=== PATIENT | male | born 1955 | race Caucasian/White ===

== ENCOUNTER 2024-09-16 23:11 | Inpatient (IN) | payer MEDICARE ==
[~2024-09-16] VITALS: Ht 182.9 cm; Wt 49.0 kg
--- NOTE | 2024-09-16 23:34 | NUR ---
PT WAS PLACED ON O2 VIA N/C AT 2 LPM
[2024-09-16 23:40] LABS: BASOPHILS # (AUTO) 0.05 K/uL (0.00-0.20); BASOPHILS % (AUTO) 0.4 % (0.0-5.0); EOSINOPHILS # (AUTO) 0.32 K/uL (0.00-0.70); EOSINOPHILS % (AUTO) 2.6 % (0.0-8.0); HEMATOCRIT 46.5 % (42-54); IMMATURE GRANULOCYTE ABSOLUTE 0.06 K/uL (0-1); LYMPHOCYTES # (AUTO) 0.7 K/uL (1.0-4.8); MEAN CORPUSCULAR HEMOGLOBIN 30.6 pg (27.0-33.0); MEAN CORPUSCULAR HGB CONC 33.3 g/dL (32.0-36.0); MEAN CORPUSCULAR VOLUME 91.9 fL (79-99); MONOCYTES # (AUTO) 0.9 K/uL (0.1-1.0); MONOCYTES % (AUTO) 7.1 % (3.0-13.0); NEUTROPHILS # (AUTO) 10.3 K/uL (1.8-7.7); NEUTROPHILS % (AUTO) 83.4 % (40.0-77.0); PLATELET COUNT (AUTO) 201 K/uL (130-400); RED BLOOD CELL COUNT(AUTO) 5.06 MIL/uL (4.50-6.20); RED CELL DISTRIBUTION WIDTH 14.1 % (11.0-15.5); WHITE BLOOD COUNT (AUTO) 12.3 K/uL (4.8-10.8)
--- NOTE | 2024-09-16 23:49 | ERN ---
ED Note History of Present Illness Stated Complaint: SOB X 2 DAYS Chief Complaint: Adult-Asthma Time Seen by MD: 23:15 Dictation: This is a 69-year-old very pleasant male who came into the emergency room with complaints of increasing shortness of breath progressively but got worse over 2 days. He usually takes breathing treatments with some relief however this particular time it did not help him 2-1/2 years ago he was admitted to the hospital but denied any intubation. At that time he was started on breathing treatments. He reports cough associated with the shortness of breath and scant amounts of sputum. He denied any hemoptysis denied fevers chills or hemoptysis. No recent travel or new pets at home Temperature 97.1 pulse 100 respirations 26 blood pressure 138/54. Pulse oximetry 99% on room air He has never been formally diagnosed with COPD but was told he had asthma. He continues to smoke 2 packs of cigarettes per day and also smokes marijuana daily Allergies: Coded Allergies: No Known Drug Allergies (Unverified Allergy, Unknown, 09/16/24) Past Medical History Past Medical History: Asthma, COPD, Hypertension Surgical History: Unknown Family History: Negative Social History: Smokers (Smokes 2 packs per day), Drugs (Marijuana use), ETOH RN Note Reviewed/Agreed w/PFSH: Yes Review of System Dictation Constitutional: Negative for fever,chills, and weight loss Eyes: Negative for injury, pain,redness, and discharge ENT: Negative for injury,pain or swelling Cardiovascular: Negative for chest pain, palpitations, and edema Respiratory: Positive for shortness of breath, cough, and wheezing, Abdomen/GI: Negative for abdominal pain, nausea, vomiting, diarrhea, and constipation Back: Negative for injury and pain : Negative for injury, bleeding and discharge MS/Extremity: Negative for injury and deformity Skin: Negative for rash, and discoloration Neuro: Negative for headache, weakness, numbness, tingling, and seizure Psych: Negative for suicide ideation, homicidal ideation, and hallucinations Initial Vital Sign VS Vital Signs Date Time Temp Pulse Resp B/P (MAP) Pulse Ox O2 Delivery O2 Flow Rate FiO2 09/16/24 23:12 97.2 100 26 138/84 99 Room Air 0 09/16/24 23:12 100 Physical Exam Dictation General: awake, alert, very emaciated, cachectic, chronically ill-appearing with a temporal wasting, moderately tachypneic Head/Face: Normocephalic, atraumatic Eyes: PERRL, EOMI, vision at baseline ENT: oral cavity clear, TMs clear, no signs of infection Neck: Trachea midline, supple, no nuchal rigidity Cardiovascular: RRR, normal S1/S2, No MRGs, no JVD Respiratory: Poor air entry with prolonged expiratory phase and end expiratory wheezes more pronounced posteriorly Abdomen: Soft, non-tender, non-distended, normal bowel sounds, no guarding or rebound. Skin: Warm, dry, normal turgor, no rash MS/Extremity: Pulses equal, no cyanosis, neurovascular intact, FROM Neuro: COAx4, GCS 15, strength 5/5, CN 2-12 intact, normal cerebellar exam, normal gait, Psych: Normal behavior, mood, and affect normal Extremities-no edema without any palpable cords, Homans sign is negative Results (Laboratory/Radiology) Laboratory/Radiology Laboratory Tests Test 09/16/24 23:23 09/16/24 23:32 White Blood Count 12.3 K/uL (4.8-10.8) H Red Blood Count 5.06 MIL/uL (4.50-6.20) Hemoglobin 15.5 g/dL (14.0-18.0) Hematocrit 46.5 % (42-54) Mean Corpuscular Volume 91.9 fL (79-99) Mean Corpuscular Hemoglobin 30.6 pg (27.0-33.0) Mean Corpuscular Hemoglobin Concent 33.3 g/dL (32.0-36.0) Red Cell Distribution Width 14.1 % (11.0-15.5) Platelet Count 201 K/uL (130-400) Mean Platelet Volume 10.9 fL (7.5-10.5) H Immature Granulocyte % (Auto) 0.5 % (0-1) Neutrophils (%) (Auto) 83.4 % (40.0-77.0) H Lymphocytes (%) (Auto) 6.0 % (21.0-51.0) L Monocytes (%) (Auto) 7.1 % (3.0-13.0) Eosinophils (%) (Auto) 2.6 % (0.0-8.0) Basophils (%) (Auto) 0.4 % (0.0-5.0) Neutrophils # (Auto) 10.3 K/uL (1.8-7.7) H Lymphocytes # (Auto) 0.7 K/uL (1.0-4.8) L Monocytes # (Auto) 0.9 K/uL (0.1-1.0) Eosinophils # (Auto) 0.32 K/uL (0.00-0.70) Basophils # (Auto) 0.05 K/uL (0.00-0.20) Absolute Immature Granulocyte (auto 0.06 K/uL (0-1) Nucleated Red Blood Cells 0.0 % (0.0-0.19) Sodium Level 133 mmol/L (136-145) L Potassium Level 4.5 mmol/L (3.5-5.1) Chloride Level 96 mmol/L (101-111) L Carbon Dioxide Level 30 mmol/L (21-32) Blood Urea Nitrogen 19 mg/dL (7-18) H Creatinine 0.4 mg/dL (0.5-1.3) L Glomerular Filtration Rate Calc 118 mL/min (>90) Random Glucose 131 mg/dL (70-105) H Total Calcium 8.7 mg/dL (8.5-10.1) Influenza Type A Antigen Negative For Type A Influenza Type B Antigen Negative For Type B SARS-CoV-2, RNA, NAAT NEGATIVE SARS CoV-2 Group A Streptococcus Rapid negative (NEGATIVE) Labs Reviewed?: Yes EKG Comment: 12 lead EKG done on 09/16/2024 at 11:22 p.m. showed a normal sinus rhythm with a heart rate of 93, MS 149, QRS duration 72, QT/QTC 344/427 Impression sinus tachycardia with evidence of possible right atrial enlargement nonspecific ST-T changes but no evidence of any acute ST elevations or deep ST depressions. Interpreted by Dr. Hagan X-RAY Comment: It at by Dr. Hagan Chest x-ray showed severe hyperinflation, emphysematous changes with chronic scarring but did not appreciate any focal infiltrate. Radiology report is pending at this time ED Course ED Course Orders Procedure Category Date Status Time Cbc With Differential LAB 09/16/24 In Process 23:20 Basic Metabolic Panel LAB 09/16/24 Complete 23:20 Chest 1vw RAD 09/16/24 Resulted 23:20 12 Lead Ekg Tracing- EKG 09/16/24 Logged Technical 23:20 Covid Rna Naat LAB 09/16/24 Complete 23:28 Influenza Type A & B, LAB 09/16/24 Complete Rapid 23:28 Rapid (Group A Strep) LAB 09/16/24 Complete 23:28 Arterial Blood Gas RT 09/16/24 Transmitted 23:39 O2 Nc Keep Sats CPOE 09/16/24 Transmitted Greater 92% 23:39 Notify Md: Spo2 < 88% CPOE 09/16/24 Transmitted 23:39 0.9%Nacl 1000ml (Ns PHA 09/17/24 In Process 1000ml) 00:00 Ipratropium/Albuterol PHA 09/17/24 Complete Neb (Duoneb) 00:00 Alprazolam 0.25mg PHA 09/17/24 Complete (Xanax 0.25mg) 00:00 Methylprednisolone PHA 09/17/24 Complete Succ 125mg (Solu-Medr 00:00 Guaifenesin 600 Mg PHA 09/17/24 In Process Tablet.Er (Mucinex 60 00:30 Levofloxacin 750 PHA 09/17/24 In Process Mg/D5w 150 Ml 00:30 Current Medications Medications (Trade) Dose Ordered Sig/Btehany Route PRN Reason Start Time Stop Time Status Last Admin Dose Admin Albuterol (DUOneb) 1 udvial ONCE ONCE IH 09/17/24 00:00 09/17/24 00:01 DC Alprazolam (XANax 0.25MG) 0.25 mg ONCE ONCE PO 09/17/24 00:00 09/17/24 00:01 DC 09/17/24 00:00 Guaifenesin (MUCinex 600 MG TABLET.ER) 600 mg ONCE ONCE PO 09/17/24 00:30 09/17/24 00:31 Levofloxacin/ Dextrose (LEvaquIN 750 MG/ D5W 150 ML) 750 mg ONCE ONCE IV 09/17/24 00:30 09/17/24 00:31 Methylprednisolone Sodium Succinate (Solu-medROL 125MG) 125 mg ONCE ONCE IVP 09/17/24 00:00 09/17/24 00:01 DC 09/17/24 00:00 Sodium Chloride 1,000 ml @ 125 mls/hr ONCE ONCE IV 09/17/24 00:00 09/17/24 07:59 09/17/24 00:00 Vital Signs Date Time Temp Pulse Resp B/P (MAP) Pulse Ox O2 Delivery O2 Flow Rate FiO2 09/17/24 00:00 93 24 124/62 93 Nasal Cannula* 2 28 09/16/24 23:12 97.2 100 26 138/84 99 Aerosol Mask+ 10 100 09/16/24 23:12 97.2 100 26 138/84 99 Room Air 0 We will perform diagnostic labs, advanced imaging and administer medications according to the patient's complaint. Once the results are available, will review and personally interpreted the labs to rule out any acute life- threatening emergency the trach require immediate intervention and treatment. I will then re-evaluate the patient after treatment and diagnostic exams have return to determine whether the patient requires any further testing, can safely be discharged home or need further admission to hospital for additional treatment and evaluation. COPD pathway was initiated. Gentle hydration, IV steroids and bronchodilators were started. 12:15 a.m. Labs reviewed WBC 12.3 BNP 7 showed a bicarb of 30 ABG is pending. Chest x-ray showed severe hyperinflation and emphysematous changes Recommended admission to the hospital for acute on chronic hypoxemic respiratory failure with COPD exacerbation. And was very labored when he came in but has settle down somewhat since then Patient [facility] and further management-placed orders for step-down unit Medical Decision Making MDM MDM: Differential diagnosis: COPD with acute exacerbation, congestive heart failure, pneumonia Rationale: Tests considered and ordered secondary to shared decision making include: labs, ECG and radiology Previous outside records reviewed: Old ER visits. Risk of complication and/or morbidity or mortality of patient management: None Medications-Per medication reconciliation Need for hospitalization: Patient does meet criteria for hospitalization. Need for emergency major/minor surgery: No There are no social concerns with this patient. Prescription drug management Prescriptions will include symptomatic care Patient's prior external medical records from other ER visits were reviewed by me as indicated. Prior testing and results from previous visits were reviewed. Prior tests were taken into account with medical decision making and resource utilization, independent historian/historians were used to obtain complete medical history. I independently interpreted the test that were performed, results were reviewed by me and considered findings on radiology if ordered. Medical management and examination interpretation discussions were had by me with other qualified healthcare professionals as indicated for the patient's care. Problem List Problem List: (1) Acute hypoxemic respiratory failure (2) Acute exacerbation of COPD with asthma (3) Nicotine dependence (4) Cannabis use disorder (5) Pulmonary cachexia due to COPD DX & DISP Disposition: Inpatient Decision to Admit Time: 23:47 Departure Impression: Primary Impression: Acute hypoxemic respiratory failure Additional Impressions: Acute exacerbation of COPD with asthma, Nicotine dependence, Cannabis use disorder, Pulmonary cachexia due to COPD Condition: Stable Additional Instructions: Patient was informed of all the diagnostic labs and procedures conducted in the emergency room today and demonstrated understanding of the results. I personally reviewed and interpreted all the diagnostic exams performed in the ER today. The patient will be admitted to the hospital for further treatment and evaluation. Disposition-admit to facility Condition-stable/guarded Course-uncertain at this time Pain status-decreased Assessment-exam unchanged Admission Certification- I certify that the patients status is appropriate and is based on my best clinical judgment and the patient's condition as documented in the medical records Referrals: SO HUNT MD (PCP) STU HAGAN MD Sep 16, 2024 23:49
[2024-09-16 23:53] LABS: CREATININE 0.4 mg/dL (0.5-1.3); POTASSIUM 4.5 mmol/L (3.5-5.1)
[2024-09-16 23:57] LABS: RAPID GROUP A STREP negative (NEGATIVE)
[2024-09-17] VITALS (17 sets, daily range): BP systolic 117–136; BP diastolic 71–80; PULSE 76–99; RESP 18–22; TEMP 98–98.8; O2SAT 93–98
[2024-09-17] MEDS: ALPRAZolam 0.25 MG TABLET PO ONE
[2024-09-17] MEDS: Solu-medROL 125MG VIAL IVP ONE
[2024-09-17] MEDS: 0.9%NACL 1000ML 1,000 ML IV ONE
[2024-09-17 00:01] LABS: SARS-CoV-2, RNA, NAAT NEGATIVE SARS CoV-2 (NEGATIVE)
[2024-09-17 00:07] LABS: INFLUENZA TYPE A Negative For Type A (NEGATIVE); INFLUENZA TYPE B Negative For Type B (NEGATIVE)
--- NOTE | 2024-09-17 00:26 | HMCIMG ---
CHEST 1VW HISTORY: Shortness of breath COMPARISON: None FINDINGS: A frontal projection of the chest was obtained. Mild bilateral pulmonary infiltrates are seen may be related to mild pulmonary vascular congestion with possible superimposed pneumonitis. COPD changes are seen. The heart is borderline enlarged. Degenerative changes are seen. No evidence of aortic calcification is seen. IMPRESSION: 1. Mild bilateral pulmonary infiltrates are seen may be related to mild pulmonary vascular congestion with possible superimposed pneumonitis.
[2024-09-17] MEDS: levoFLOXacin 750 MG/D5W 150ML BAG IV ONE (00:27)
[2024-09-17] MEDS: guaiFENesin 600 MG TABLET.ER PO ONE (00:27)
[2024-09-17] MEDS: IpraTROPium/alBUTERol SULFATE 3 ML SOLUTION IH ONE (00:50)
[2024-09-17 00:59] LABS: ABG BASE EXCESS -2.2 mmol/L (-2.0-3.0); ABG OXYGEN SATURATION 87.8 % (94.0-98.0); ABG PCO2 41 mmHg (35-48); ABG PH 7.366 (7.350-7.450); PO2, ARTERIAL BG 55.2 mmHg (83.0-108.0); VENT MODE, BG ROOMAIR (ROOM AIR)
[2024-09-17] MEDS ORDERED: TEMAZepam 15 MG CAPSULE PO PRN (01:00)
[2024-09-17] MEDS ORDERED: acetaMINOPHEN 650 MG SUPPOSITORY RC PRN (01:00)
[2024-09-17] MEDS ORDERED: doCUSate SODIUM 100 MG CAP PO PRN (01:00)
[2024-09-17] MEDS ORDERED: hydrALAZine 20MG/ML VIAL IV PRN (01:00)
[2024-09-17] MEDS ORDERED: LACTULOSE 20 GM/30 ML UDCUP PO PRN (01:00)
[2024-09-17] MEDS ORDERED: guaiFENesin SUGAR-FREE 100 MG/5 ML UDCUP PO PRN (01:00)
--- NOTE | 2024-09-17 01:01 | HP ---
[facility] HISTORY AND PHYSICAL Date of Service: Sep 17, 2024 Time of Service: 01:01 PCP: Dr. Markus Cartagena Supervising physician/attending: Dr. Pfeiffer and Dr. Castillo HISTORY OF PRESENT ILLNESS: Mr. Rosario is a 69-year-old male who presented to with a history of a asthma, tobacco dependence, cannabis abuse, hypertension, and anxiety [facility] ED for evaluation of progressive worsening shortness of breath over 2 days. The patient was prescribed albuterol and fluticasone-Solmeterol by Dr. Sienna Lee. The patient reports usually takes albuterol treatments with some relief, however this time albuterol did not help him. 2-1/2 years ago he was admitted to the hospital but denied any intubation. At that time he was started on breathing treatments. He reports cough associated with the shortness of breath and scant amounts of foamy sputum (reports the phlegm is not green or yellow). He denied any hemoptysis, chills, fevers, or hemoptysis. The patient also denied any recent travel or new pets at home. On arrival to ED patient's vital signs: Temperature 97.1 pulse 100 respirations 26 blood pressure 138/54. Pulse oximetry 93- 99% on room air. The patient reported that he has never been formally diagnosed with COPD but was told he had asthma. 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 He continues to smoke 2 packs of cigarettes per day and also smokes marijuana daily. EKG: Sinus rhythm, heart rate 93. Chest x-ray: Mild bilateral pulmonary infiltrates are seen maybe related to mild pulmonary vascular congestion with possible superimposed pneumonitis. D-dimer WNL 464, BNP 60, troponin 13. I nfluenza, COVID, and rapid strep are negative. GFR 118. Remarkable lab results: WBCs 12.3, sodium 133, chloride 96, BUN 19, creatinine 0.4, glucose 131, UA is positive for ketones, occult blood, and protein. ED physician reports that patient arrived to the ED very unlabored. In ED patient was administered DuoNeb, Xanax, [id number] mg, Mucinex, and L evaquin. ED physician request patient be admitted for acute on chronic hypoxemic respiratory failure with COPD exacerbation. I went to evaluate patient at bedside in ED five. Patient was tachypneic, had retractions, and was wheezing. I informed patient of labs, diagnostics, and plan of care. Education done on smoking cessation. Multiple questions were answered. Patient verbalizes understanding and is in agreement with the plan. Plan and assessment are listed below. REVIEW OF SYSTEMS 12-point ROS reviewed with patient. All pertinent positives mentioned above. Otherwise negative, nonpertinent, and noncontributory. Past Medical History: Asthma, Hypertension, undiagnosed COPD Surgical History: Appendectomy, oral surgery with implants Family History: Negative Social History: Smokers (Smokes 2 packs per day), Drugs (Marijuana use), ETOH Coded Allergies: No Known Drug Allergies (Unverified Allergy, Unknown, 09/16/24) PHYSICAL EXAM GENERAL APPEARANCE: The patient is awake, alert, and oriented x4. Cachectic. NEUROLOGICAL: Cranial nerves II-XII grossly intact. Motor is 5/5 in bilateral upper and lower extremities proximal to distal. No sensory deficits. HEENT: Face is symmetric. Pupils are equal and reactive. Extraocular movements are intact. NECK: Supple. No JVD. No thyromegaly. No submental, submandibular, pre- /postauricular, occipital or supraclavicular lymphadenopathy. CHEST: Normal chest expansion. No Telemetry. LUNGS: + wheezing. Tachypneic, retractions, abdominal breathing. CARDIOVASCULAR: Regular. S1 and S2 normal. No appreciable rubs, murmurs or gallops. ABDOMEN: Soft, nontender, and nondistended. There is no rebound, voluntary guarding, or rigidity. : Deferred. No Jasmine. EXTREMITIES: Non-edematous and not cyanotic. No clubbing. Good capillary refill. SKIN: No skin breakdown. Vital Sign (Last 24 Hours) 09/16/24 09/17/24 23:12 00:00 Temp 97.2 Pulse 93 Resp 24 B/P (MAP) 124/62 Pulse Ox 93 O2 Delivery Nasal Cannula* O2 Flow Rate 2 FiO2 28 LABS: Laboratory: Test 09/17/24 00:57 09/16/24 23:32 09/16/24 23:23 Range/Units Blood Gas Specimen Type Arterial Arterial Blood pH 7.366 7.350-7.450 Arterial Blood Partial Pressure CO2 41 35-48 mmHg Arterial Blood Partial Pressure O2 55.2 L 83.0-108.0 mmHg Arterial Blood HCO3 23.0 21.0-28.0 mmol/L Arterial Blood Oxygen Saturation 87.8 L 94.0-98.0 % Arterial Blood Base Excess -2.2 L -2.0-3.0 mmol/L Blood Gas Temperature 37.0 35.5-37.0 CELSIUS Blood Gas Vent Mode ROOMAIR ROOM AIR FiO2 21.0 % Blood Gas Specimen Comment RB Influenza Type A Antigen Negative For Type A NEGATIVE Influenza Type B Antigen Negative For Type B NEGATIVE SARS-CoV-2, RNA, NAAT NEGATIVE SARS CoV-2 NEGATIVE Group A Streptococcus Rapid negative NEGATIVE White Blood Count 12.3 H 4.8-10.8 K/uL Red Blood Count 5.06 4.50-6.20 MIL/uL Hemoglobin 15.5 14.0-18.0 g/dL Hematocrit 46.5 42-54 % Mean Corpuscular Volume 91.9 79-99 fL Mean Corpuscular Hemoglobin 30.6 27.0-33.0 pg Mean Corpuscular Hemoglobin Concent 33.3 32.0-36.0 g/dL Red Cell Distribution Width 14.1 11.0-15.5 % Platelet Count 201 130-400 K/uL Mean Platelet Volume 10.9 H 7.5-10.5 fL Immature Granulocyte % (Auto) 0.5 0-1 % Neutrophils (%) (Auto) 83.4 H 40.0-77.0 % Lymphocytes (%) (Auto) 6.0 L 21.0-51.0 % Monocytes (%) (Auto) 7.1 3.0-13.0 % Eosinophils (%) (Auto) 2.6 0.0-8.0 % Basophils (%) (Auto) 0.4 0.0-5.0 % Neutrophils # (Auto) 10.3 H 1.8-7.7 K/uL Lymphocytes # (Auto) 0.7 L 1.0-4.8 K/uL Monocytes # (Auto) 0.9 0.1-1.0 K/uL Eosinophils # (Auto) 0.32 0.00-0.70 K/uL Basophils # (Auto) 0.05 0.00-0.20 K/uL Absolute Immature Granulocyte (auto 0.06 0-1 K/uL Nucleated Red Blood Cells 0.0 0.0-0.19 % Sodium Level 133 L 136-145 mmol/L Potassium Level 4.5 3.5-5.1 mmol/L Chloride Level 96 L 101-111 mmol/L Carbon Dioxide Level 30 21-32 mmol/L Blood Urea Nitrogen 19 H 7-18 mg/dL Creatinine 0.4 L 0.5-1.3 mg/dL Glomerular Filtration Rate Calc 118 >90 mL/min Random Glucose 131 H 70-105 mg/dL Total Calcium 8.7 8.5-10.1 mg/dL Current Medications Medications (Trade) Dose Ordered Sig/Bethany Route PRN Reason Start Time Stop Time Status Last Admin Dose Admin Acetaminophen (TYLenol 325MG TAB) 650 mg Q6H PRN PO FEVER/MILD PAIN LEVEL 1-3 09/17/24 01:00 10/17/24 00:59 UNV Acetaminophen (TYLenol 650MG SUPPOSITORY) 650 mg Q6H PRN RC FEVER / MILD PAIN 1-3 IF NPO 09/17/24 01:00 10/17/24 00:59 UNV Albuterol Sulfate (Proventil 0.083% 2.5mg/3ml) 2.5 mg [id number] IH 09/17/24 06:00 10/17/24 05:59 UNV Docusate Sodium (COLace 100MG CAP) 100 mg BID PRN PO CONSTIPATION 09/17/24 01:00 10/17/24 00:59 UNV Doxycycline Hyclate (Doxycycline 100mg+NS 250ml) 100 mg BID IV 09/17/24 09:00 09/27/24 08:59 UNV Enoxaparin Sodium (Lovenox) 40 mg DAILY SQ 09/17/24 09:00 10/17/24 08:59 UNV Famotidine (Pepcid 20mg Tab) 20 mg BID PO 09/17/24 09:00 10/17/24 08:59 UNV Hydralazine HCl (APRESOLine 20MG INJ) 10 mg Q6H PRN IV SBP GREATER THAN 180 09/17/24 01:00 10/17/24 00:59 UNV Insulin Human Regular (humuLIN R 100 UNIT/ML 3ML) INSULIN SLIDING SCAL... ACHS SQ 09/17/24 07:30 10/17/24 07:29 UNV Ipratropium [place] (AtrovENT UD) 0.5 mg [id number] IH 09/17/24 06:00 10/17/24 05:59 UNV Lactulose (Constulose 20gm/ 30ml Udcup) 20 gm Q6H PRN PO CONSTIPATION 09/17/24 01:00 10/17/24 00:59 UNV Ondansetron HCl (zoFRAN 4MG INJ) 4 mg Q6H PRN IVP NAUSEA/VOMITING 09/17/24 01:00 10/17/24 00:59 UNV Temazepam (restORIL 15 MG CAP) 15 mg HS PRN PO INSOMNIA/SLEEP 09/17/24 01:00 10/17/24 00:59 UNV DIAGNOSTICS / RADIOLOGY: [ ] ASSESSMENT: Acute hypoxemic respiratory failure, POA Acute exacerbation of COPD with asthma/wheezing, POA Pulmonary vascular congestion with superimposed pneumonitis, POA Pulmonary cachexia due to COPD Leukocytosis Electrolyte derangement (hyponatremia, hypochloremia) Dehydration Hyperglycemia Nicotine dependence Cannabis use disorder Chronic problem list: Asthma, hypertension, anxiety, tobacco and cannabis abuse PLAN: Admit to medical floor with telemetry monitoring. Monitor respirations status closely. O2 at 2 L nasal cannula, titrate to keep SpO2 equal to greater than 92%. Albuterol and Atrovent scheduled q.6 hours. Robitussin DM as needed for cough. Solu-Medrol 60 mg IV q.8 hours. Start doxycycline 100 mg IV b.i.d.. Start Montelukast [address] Nicotine patch. Education on smoking cessation. Obtain CT chest without contrast. Consult pulmonology team for acute hypoxemic respiratory failure. Patient is to continue to follow up with pulmonology as an outpatient evaluation and treatment of COPD/asthma frequent exacerbations. P.r.n. medications for: Pain, nausea, vomiting, fever, constipation, hyperglycemia. Glucometer checks a.c. and HS with insulin regular sliding scale per protocol as needed. Blood pressure checks every4 hours and as needed. Reconcile home medications once available. A.m. labs: CBC, BMP, Mag, phos, TSH, A1c. Monitor electrolytes and treat accordingly. Monitor ABG and chest x-ray. RT to provide IS and education on use. DVT and GI prophylaxis. ADVANCED CARE PLANNING 1. Which of the following were discussed? Hospice Care - No Therapeutic options - Yes Advance Directives - Yes Other discussions - 2. Discussed with who? Patient 3. Voluntary nature of this service was explained to the patient? Yes 4. Amount of time spent - ___ over 35 minute ____ 5. Reviewed by Physician? (if this service was performed by NPP) Yes Patient seen and examined by me. Agree with note by OPEN SHANK COVERER SEE ADDITIONAL ORDERS PER CHART DISCUSSED WITH NURSING STAFF LUCIA FAIR POWER BRAKE REBUILDER Sep 17, 2024 01:01
[2024-09-17 04:13] LABS: APPEARANCE,URINE CLEAR (CLEAR); BILIRUBIN,URINE NEGATIVE (NEGATIVE); COLOR,URINE YELLOW (YELLOW); GLUCOSE, URINE (UA) NEGATIVE (NEGATIVE); KETONES,URINE 40 mg/dL (NEGATIVE); LEUKOCYTE ESTERASE ,URINE NEGATIVE Leu/uL (NEGATIVE); NITRATE,URINE NEGATIVE (NEGATIVE); OCCULT BLOOD,URINE MODERATE (NEGATIVE); PH,URINE 5.5 (5.0-8.0); PROTEIN,URINE 30 mg/dL (NEGATIVE); UROBILINOGEN,URINE 0.2 mg/dL (0.2-1.0)
[2024-09-17 04:14] LABS: ADD UA MICROSCOPIC YES
[2024-09-17 04:18] LABS: MUCUS,URINE RARE LPF (None Seen)
[2024-09-17] MEDS: ALBUTEROL 0.083% 2.5 MG/3 ML INH IH ONE (04:51)
[2024-09-17 05:10] LABS: AMPHET/METH SCREEN,URINE NEGATIVE (NEGATIVE); BARBITURATE SCREEN, URINE NEGATIVE (NEGATIVE); BENZODIAZEPINES SCREEN,URINE POSITIVE (NEGATIVE); CANNABINOID SCREEN,URINE POSITIVE (NEGATIVE); COCAINE SCREEN,URINE NEGATIVE (NEGATIVE); OPIATE SCREEN,URINE POSITIVE (NEGATIVE); PHENCYCLIDINE SCREEN,URINE NEGATIVE (NEGATIVE)
[2024-09-17] MEDS: INSULIN humuLIN R 100 UNIT/ML 3ML SQ SCH (05:59)
[2024-09-17] MEDS: monteLUKAST sodIUM 10 MG TAB PO SCH (06:00)
[2024-09-17] MEDS: NICOTINE 14 MG/ 24 HR PATCH TD SCH (06:02)
[2024-09-17] MEDS: ALBUTEROL 0.083% 2.5 MG/3 ML INH IH SCH (06:40)
[2024-09-17] MEDS: IpraTROPium 0.5 MG/2.5 ML INH IH SCH (06:40)
[2024-09-17] MEDS: FAMOTIDINE 20MG TAB PO SCH (08:36)
[2024-09-17] MEDS: DOXYCYCLINE 100MG+NS 250ML IV SCH (08:36)
[2024-09-17] MEDS: ENOXAPARIN SODIUM 40 MG/0.4 ML SYRINGE SQ SCH (08:36)
[2024-09-17] MEDS: Solu-medROL 125MG VIAL IVP SCH (08:36)
--- NOTE | 2024-09-17 11:25 | HMCIMG ---
CT CHEST W/O CONTRAST HISTORY: Acute hypoxic respiratory failure COMPARISON: None TECHNIQUE: Multiple sequential axial images of the chest were obtained from the thoracic inlet through upper abdomen. Patient was not given contrast through intravenous route. FINDINGS: There are interstitial fibrosis with bronchiectasis. Bibasilar linear atelectasis changes are seen. COPD changes are seen. Coronary arterial calcifications are seen. There is no evidence of pulmonary nodule or parenchymal disease. No pleural effusion or pericardial effusion is seen. There is no evidence of pneumothorax. There are normal size mediastinal and hilar lymph nodes. The heart is not enlarged. Degenerative changes of the thoracolumbar spine are present. There is no evidence of adrenal nodule. Projected distention is seen. Compression fracture is seen at approximately L2 level with 70% loss of height. IMPRESSION: 1. No evidence of pulmonary nodule or effusion is seen. Interstitial fibrosis with COPD and bronchiectasis. CT was performed with one or more following dose reduction techniques: automated exposure control, adjustment of the mA and kv according to patient's size, or use of a iterative reconstruction technique.
--- NOTE | 2024-09-17 15:09 | EKG ---
[facility] Test Date: 2024-09-16 Test Time: 23:22:38 Pat Name: GUME FOY Department: [facility] Room: 301 1 Gender: M Vice President [employer]: [id number] : 1955 Requested By: STU HAGAN Order Number: [id number] Reading MD: Omid Gonsales Measurements Intervals [place] Rate: 93 P: 90 SC: 149 QRS: 85 QRSD: 72 T: 77 QT: 344 QTc: 427 Interpretive Statements Sinus rhythm Right atrial enlargement Anteroseptal infarct, age indeterminate No previous ECG available for comparison Electronically Signed On 09-17-2024 17:36:40 MEDICAL CUSTOMER SERVICE REPRESENTATIVE by Omid Gonsales Please click the below link to view image of tracing.
[2024-09-17] MEDS ORDERED: FLUT16H EN (17:17)
[2024-09-17] MEDS ORDERED: ALBU90AE3 IH (17:17)
[2024-09-17] MEDS ORDERED: ALBU1.252 NEB (17:17)
[2024-09-17] MEDS ORDERED: FLUT1BLS11 PO (17:17)
[2024-09-17] MEDS: fluTICasone proPIONate 50MCG/SPRAY 16 GM BOTTLE EN SCH (17:52)
[2024-09-18] VITALS (13 sets, daily range): BP systolic 101–151; BP diastolic 63–82; PULSE 69–99; RESP 16–20; TEMP 96.9–98.7; O2SAT 96–98
[2024-09-18 05:42] LABS: HEMATOCRIT 39.1 % (42-54); IMMATURE GRANULOCYTE ABSOLUTE 0.05 K/uL (0-1); LYMPHOCYTES # (AUTO) 0.5 K/uL (1.0-4.8); LYMPHOCYTES % (AUTO) 4.9 % (21.0-51.0); MEAN CORPUSCULAR HEMOGLOBIN 30.6 pg (27.0-33.0); MEAN CORPUSCULAR HGB CONC 32.7 g/dL (32.0-36.0); MEAN CORPUSCULAR VOLUME 93.5 fL (79-99); MONOCYTES # (AUTO) 0.2 K/uL (0.1-1.0); MONOCYTES % (AUTO) 2.4 % (3.0-13.0); NEUTROPHILS # (AUTO) 8.8 K/uL (1.8-7.7); NEUTROPHILS % (AUTO) 92.2 % (40.0-77.0); PLATELET COUNT (AUTO) 187 K/uL (130-400); RED BLOOD CELL COUNT(AUTO) 4.18 MIL/uL (4.50-6.20); RED CELL DISTRIBUTION WIDTH 13.9 % (11.0-15.5); WHITE BLOOD COUNT (AUTO) 9.5 K/uL (4.8-10.8)
[2024-09-18 06:02] LABS: CREATININE 0.6 mg/dL (0.5-1.3); POTASSIUM 4.2 mmol/L (3.5-5.1)
--- NOTE | 2024-09-18 12:55 | PN ---
[facility] PROGRESS NOTE Date of Service: Sep 18, 2024 Time of Service: 12:54 Patient was seen and examined. Case discussed with RN he is sitting up in chair still short of breath and occasional cough. In sleep to a good last night otherwise denies nausea vomiting fever or chills SUBJECTIVE: [ ] REVIEW OF SYSTEMS 12-point ROS reviewed with patient. All pertinent positives mentioned above. Otherwise negative, nonpertinent, and noncontributory. PHYSICAL EXAM GENERAL APPEARANCE: The patient is awake, alert, and oriented x4. Cachectic. NEUROLOGICAL: Cranial nerves II-XII grossly intact. Motor is 5/5 in bilateral upper and lower extremities proximal to distal. No sensory deficits. HEENT: Face is symmetric. Pupils are equal and reactive. Extraocular movements are intact. NECK: Supple. No JVD. No thyromegaly. No submental, submandibular, pre- /postauricular, occipital or supraclavicular lymphadenopathy. CHEST: Normal chest expansion. No Telemetry. LUNGS: + wheezing. Tachypneic, retractions, abdominal breathing. CARDIOVASCULAR: Regular. S1 and S2 normal. No appreciable rubs, murmurs or gallops. ABDOMEN: Soft, nontender, and nondistended. There is no rebound, voluntary gu arding, or rigidity. : Deferred. No Jasmine. EXTREMITIES: Non-edematous and not cyanotic. No clubbing. Good capillary refill. SKIN: No skin breakdown. Vital Signs (last 8hr) Date Time Temp Pulse Resp B/P (MAP) Pulse Ox O2 Delivery O2 Flow Rate FiO2 09/18/24 12:00 98.1 75 17 124/71 95 Room Air 0.0 09/18/24 11:32 78 20 09/18/24 08:00 97.0 79 20 111/66 97 Nasal Cannula 2.0 09/18/24 07:22 75 20 09/18/24 07:21 75 20 N/Cannula Low lpm 3.0 28 LABS: Laboratory: Test 09/18/24 12:05 09/18/24 05:29 09/17/24 16:43 09/17/24 04:01 Range/Units Whole Blood Glucose 147 H 70-110 MG/DL White Blood Count 9.5 4.8-10.8 K/uL Red Blood Count 4.18 L 4.50-6.20 MIL/uL Hemoglobin 12.8 L 14.0-18.0 g/dL Hematocrit 39.1 L 42-54 % Mean Corpuscular Volume 93.5 79-99 fL Mean Corpuscular Hemoglobin 30.6 27.0-33.0 pg Mean Corpuscular Hemoglobin Concent 32.7 32.0-36.0 g/dL Red Cell Distribution Width 13.9 11.0-15.5 % Platelet Count 187 130-400 K/uL Mean Platelet Volume 10.3 7.5-10.5 fL Immature Granulocyte % (Auto) 0.5 0-1 % Neutrophils (%) (Auto) 92.2 H 40.0-77.0 % Lymphocytes (%) (Auto) 4.9 L 21.0-51.0 % Monocytes (%) (Auto) 2.4 L 3.0-13.0 % Eosinophils (%) (Auto) 0.0 0.0-8.0 % Basophils (%) (Auto) 0.0 0.0-5.0 % Neutrophils # (Auto) 8.8 H 1.8-7.7 K/uL Lymphocytes # (Auto) 0.5 L 1.0-4.8 K/uL Monocytes # (Auto) 0.2 0.1-1.0 K/uL Eosinophils # (Auto) 0.00 0.00-0.70 K/uL Basophils # (Auto) 0.00 0.00-0.20 K/uL Absolute Immature Granulocyte (auto 0.05 0-1 K/uL Nucleated Red Blood Cells 0.0 0.0-0.19 % Sodium Level 136 136-145 mmol/L Potassium Level 4.2 3.5-5.1 mmol/L Chloride Level 101 101-111 mmol/L Carbon Dioxide Level 32 21-32 mmol/L Blood Urea Nitrogen 15 7-18 mg/dL Creatinine 0.6 0.5-1.3 mg/dL Glomerular Filtration Rate Calc 104 >90 mL/min Random Glucose 132 H 70-105 mg/dL Total Calcium 8.4 L 8.5-10.1 mg/dL Phosphorus Level 3.0 2.5-4.9 mg/dL Magnesium Level 2.00 1.80-2.40 mg/dL Bedside Glucose Comment Notified Nurse Urine Color YELLOW YELLOW Urine Appearance CLEAR CLEAR Urine pH 5.5 5.0-8.0 Urine Specific [place] 1.025 1.001-1.031 Urine Protein 30 H NEGATIVE mg/dL Urine Glucose (UA) NEGATIVE NEGATIVE mg/dL Urine Ketones 40 H NEGATIVE mg/dL Urine Occult Blood MODERATE H NEGATIVE Urine Nitrate NEGATIVE NEGATIVE Urine Bilirubin NEGATIVE NEGATIVE mg/dL Urine Urobilinogen 0.2 0.2-1.0 mg/dL Urine Leukocyte Esterase NEGATIVE NEGATIVE [place]/uL Urine RBC 2-5 H 0-1 /HPF Urine WBC 2-5 H 0-1 /HPF Urine Bacteria None None Seen /HPF Urine Opiates Screen POSITIVE H NEGATIVE Urine Barbiturates Screen NEGATIVE NEGATIVE Urine Phencyclidine Screen NEGATIVE NEGATIVE Urine Amphetamines Screen NEGATIVE NEGATIVE Urine Benzodiazepines Screen POSITIVE H NEGATIVE Urine Cocaine Screen NEGATIVE NEGATIVE Urine Marijuana (THC) Screen POSITIVE H NEGATIVE Test 09/17/24 00:57 09/17/24 00:52 09/16/24 23:32 09/16/24 23:23 Range/Units Blood Gas Specimen Type Arterial Arterial Blood pH 7.366 7.350-7.450 Arterial Blood Partial Pressure CO2 41 35-48 mmHg Arterial Blood Partial Pressure O2 55.2 L 83.0-108.0 mmHg Arterial Blood HCO3 23.0 21.0-28.0 mmol/L Arterial Blood Oxygen Saturation 87.8 L 94.0-98.0 % Arterial Blood Base Excess -2.2 L -2.0-3.0 mmol/L Blood Gas Temperature 37.0 35.5-37.0 CELSIUS Blood Gas Vent Mode ROOMAIR ROOM AIR FiO2 21.0 % Blood Gas Specimen Comment RB D-Dimer Quantitative (PE/DVT) 464 0-500 ng/mL Troponin I High Sensitivity 13 4-75 ng/L B-Type Natriuretic Peptide 60 0-100 pg/mL Influenza Type A Antigen Negative For Type A NEGATIVE Influenza Type B Antigen Negative For Type B NEGATIVE SARS-CoV-2, RNA, NAAT NEGATIVE SARS CoV-2 NEGATIVE Group A Streptococcus Rapid negative NEGATIVE White Cell Morphology Comment See comments Current Medications Medications (Trade) Dose Ordered Sig/Bethany Route PRN Reason Start Time Stop Time Status Last Admin Dose Admin Acetaminophen (TYLenol 325MG TAB) 650 mg Q6H PRN PO FEVER/MILD PAIN LEVEL 1-3 09/17/24 01:00 10/17/24 00:59 Acetaminophen (TYLenol 650MG SUPPOSITORY) 650 mg Q6H PRN RC FEVER / MILD PAIN 1-3 IF NPO 09/17/24 01:00 10/17/24 00:59 Albuterol Sulfate (Proventil 0.083% 2.5mg/3ml) 2.5 mg [id number] IH 09/17/24 06:00 10/17/24 05:59 09/17/24 11:49 2.5 MG Docusate Sodium (COLace 100MG CAP) 100 mg BID PRN PO CONSTIPATION 09/17/24 01:00 10/17/24 00:59 Doxycycline Hyclate (Doxycycline 100mg+NS 250ml) 100 mg BID IV 09/17/24 09:00 09/27/24 08:59 09/18/24 09:26 100 MG Enoxaparin Sodium (Lovenox) 40 mg DAILY SQ 09/17/24 09:00 10/17/24 08:59 09/18/24 09:26 40 MG Famotidine (Pepcid 20mg Tab) 20 mg BID PO 09/17/24 09:00 10/17/24 08:59 09/18/24 09:22 20 MG Fluticasone Propionate (FLOnase 50 mcg/ spray 16g bottle) 1 sprays DAILY EN 09/17/24 16:30 10/17/24 16:29 09/18/24 09:29 1 SPRAYS Guaifenesin (RobiTUSSin SUGAR-FREE 100 MG/ 5 ML UDCUP) 600 mg Q6H PRN PO COUGH 09/17/24 01:00 10/17/24 00:59 Hydralazine HCl (APRESOLine 20MG INJ) 10 mg Q6H PRN IV SBP GREATER THAN 180 09/17/24 01:00 10/17/24 00:59 Insulin Human Regular (humuLIN R 100 UNIT/ML 3ML) INSULIN SLIDING SCAL... ACHS SQ 09/17/24 07:30 10/17/24 07:29 09/17/24 17:02 4 UNIT Ipratropium [place] (AtrovENT UD) 0.5 mg H2HXMOH IH 09/17/24 06:00 10/17/24 05:59 09/18/24 11:31 0.5 MG Lactulose (Constulose 20gm/ 30ml Udcup) 20 gm Q6H PRN PO CONSTIPATION 09/17/24 01:00 10/17/24 00:59 Methylprednisolone Sodium Succinate (Solu-medROL 125MG) 60 mg Q8H IVP 09/17/24 08:00 10/17/24 07:59 09/18/24 09:22 60 MG Montelukast Sodium (SinguLAIR) 10 mg HS PO 09/17/24 04:10 10/17/24 04:09 09/17/24 20:43 10 MG Nicotine (Nicoderm) 14 mg DAILY TD 09/17/24 04:10 10/17/24 04:09 09/18/24 09:24 14 MG Ondansetron HCl (zoFRAN 4MG INJ) 4 mg Q6H PRN IVP NAUSEA/VOMITING 09/17/24 01:00 10/17/24 00:59 Temazepam (restORIL 15 MG CAP) 15 mg HS PRN PO INSOMNIA/SLEEP 09/17/24 01:00 10/17/24 00:59 DIAGNOSTICS / RADIOLOGY: [ ] ASSESSMENT: Acute hypoxemic respiratory failure, POA Acute exacerbation of COPD with asthma/wheezing, POA Pulmonary vascular congestion with superimposed pneumonitis, POA Pulmonary cachexia due to COPD Leukocytosis Electrolyte derangement (hyponatremia, hypochloremia) Dehydration Hyperglycemia Nicotine dependence Cannabis use disorder Chronic problem list: Asthma, hypertension, anxiety, tobacco and cannabis abuse PLAN: medical floor with telemetry monitoring. Monitor respirations status closely. O2 at 2 L nasal cannula, titrate to keep SpO2 equal to greater than 92%. Albuterol and Atrovent scheduled q.6 hours. Robitussin DM as needed for cough. Solu-Medrol 60 mg IV q.8 hours. Start doxycycline 100 mg IV b.i.d.. Start Montelukast [address] Nicotine patch. Education on smoking cessation. Obtain CT chest without contrast. Consult pulmonology team for acute hypoxemic respiratory failure. Patient is to continue to follow up with pulmonology as an outpatient evaluation and treatment of COPD/asthma frequent exacerbations. P.r.n. medications for: Pain, nausea, vomiting, fever, constipation, hyperglycemia. Glucometer checks a.c. and HS with insulin regular sliding scale per protocol as needed. Blood pressure checks every4 hours and as needed. Reconcile home medications once available. A.m. labs: CBC, BMP, Mag, phos, TSH, A1c. Monitor electrolytes and treat accordingly. Monitor ABG and chest x-ray. RT to provide IS and education on use. DVT and GI prophylaxis. MARYANNE POE MD Sep 18, 2024 12:55
--- NOTE | 2024-09-18 15:35 | NUR ---
Discharge Planning: Pt. states he lives alone. Contact number is for his friend Cass Higginbotham at . PCP is Dr. Sienna Lee, and preferred pharmacy is [facility] in [place]. Pt. states he is independent with all ADL's. No home health, provider services, or DME. DCP is for home. No d/c needs at present time. Addendum: 09/18/24 at 1538 by MELISSA MATTSON RN CM Amended: Links added.
[2024-09-18] MEDS: ALPRAZolam 0.5 MG TABLET PO ONE (20:12)
[2024-09-19] VITALS (13 sets, daily range): BP systolic 123–155; BP diastolic 45–94; PULSE 76–105; RESP 16–24; TEMP 97.6–98.5; O2SAT 81–98
--- NOTE | 2024-09-19 07:02 | NUR ---
PATIENT UPDATE PT TALKED ABOUT FEELING UNCOMFORTABLE EARLY DURING THE START OF THE SHIFT, TALKING ABOUT FEELING TREMORS AND WITHDRAWAL SYMPTOMS. CALLED Kane SALTER RN, XANAX 0.5 MG TAB GIVEN A ONE TIME DOSE. SLEPT FOR A GOOD TWO HOURS THEN STARTED CALLING AGAIN AFTER MN. VERY CONFUSED AND DISORIENTED. STATED THAT HE WAS LOOKING FOR A MISSING FRIEND MEET WHO SUPPOSED TO BE LOOKING FOR THE CRACK, TOOK HIS OXYGEN OFF WITH HIS O2 SAT DOWN TO THE LOW 80'S. PT REORIENTED AND WAS TOLD THE IMPORTANCE OF KEEPING THE OXYGEN ON, THE CONFUSION MOST POSSIBLY COULD HAVE STEMMED OUT FROM DEPRIVATION OF OXYGEN. DID THIS 3X UNTIL WE PLANNED TAKING THE PT UPSTAIRS FOR A 2 TO 1 BUT STRONGLY REFUSED, STATED THAT HE WILL START BEHAVING NOW.
--- NOTE | 2024-09-19 09:28 | PN ---
[facility] PROGRESS NOTE Date of Service: Sep 19, 2024 Time of Service: 09:19 SUBJECTIVE: [ ] This is a 69-year-old male was admitted on September 17, 2024 with chief complaints of worsening shortness a breath over two days. ER workup was consistent with mild bilateral pulmonary infiltrates mild pulmonary vascular congestion with possible superimposed pneumonitis. Patient was seen and examined with Dr. Castillo The patient appear resp distress upon to complete a full sentence without gasping for air. He just received a duoneb treatment. RR > 28 anxious. WE will transfer to PCCU for closer observation given to high risk for decompensate airway. REVIEW OF SYSTEMS 12-point ROS reviewed with patient. All pertinent positives mentioned above. Otherwise negative, nonpertinent, and noncontributory. PHYSICAL EXAM GENERAL APPEARANCE: The patient is awake, alert, and oriented x4. Cachectic. NEUROLOGICAL: Cranial nerves II-XII grossly intact. Motor is 5/5 in bilateral upper and lower extremities proximal to distal. No sensory deficits. HEENT: Face is symmetric. Pupils are equal and reactive. Extraocular movements are intact. NECK: Supple. No JVD. No thyromegaly. No submental, submandibular, pre- /postauricular, occipital or supraclavicular lymphadenopathy. CHEST: Normal chest expansion. No Telemetry. LUNGS: + wheezing. Tachypneic, retractions, abdominal breathing. CARDIOVASCULAR: Regular. S1 and S2 normal. No appreciable rubs, murmurs or gallops. ABDOMEN: Soft, nontender, and nondistended. There is no rebound, voluntary guarding, or rigidity. : Deferred. No Jasmine. EXTREMITIES: Non-edematous and not cyanotic. No clubbing. Good capillary refill. SKIN: No skin breakdown. Vital Signs (last 8hr) Date Time Temp Pulse Resp B/P (MAP) Pulse Ox O2 Delivery O2 Flow Rate FiO2 09/19/24 07:45 97.9 79 20 127/75 96 Nasal Cannula 2.0 09/19/24 06:46 76 20 09/19/24 06:46 76 20 N/Cannula Low lpm 2.0 28 09/19/24 03:06 98.4 81 22 151/73 91 Nasal Cannula 2.0 LABS: Laboratory: Test 09/19/24 05:11 09/18/24 05:29 09/17/24 16:43 Range/Units Whole Blood Glucose 146 H 70-110 MG/DL White Blood Count 9.5 4.8-10.8 K/uL Red Blood Count 4.18 L 4.50-6.20 MIL/uL Hemoglobin 12.8 L 14.0-18.0 g/dL Hematocrit 39.1 L 42-54 % Mean Corpuscular Volume 93.5 79-99 fL Mean Corpuscular Hemoglobin 30.6 27.0-33.0 pg Mean Corpuscular Hemoglobin Concent 32.7 32.0-36.0 g/dL Red Cell Distribution Width 13.9 11.0-15.5 % Platelet Count 187 130-400 K/uL Mean Platelet Volume 10.3 7.5-10.5 fL Immature Granulocyte % (Auto) 0.5 0-1 % Neutrophils (%) (Auto) 92.2 H 40.0-77.0 % Lymphocytes (%) (Auto) 4.9 L 21.0-51.0 % Monocytes (%) (Auto) 2.4 L 3.0-13.0 % Eosinophils (%) (Auto) 0.0 0.0-8.0 % Basophils (%) (Auto) 0.0 0.0-5.0 % Neutrophils # (Auto) 8.8 H 1.8-7.7 K/uL Lymphocytes # (Auto) 0.5 L 1.0-4.8 K/uL Monocytes # (Auto) 0.2 0.1-1.0 K/uL Eosinophils # (Auto) 0.00 0.00-0.70 K/uL Basophils # (Auto) 0.00 0.00-0.20 K/uL Absolute Immature Granulocyte (auto 0.05 0-1 K/uL Nucleated Red Blood Cells 0.0 0.0-0.19 % Sodium Level 136 136-145 mmol/L Potassium Level 4.2 3.5-5.1 mmol/L Chloride Level 101 101-111 mmol/L Carbon Dioxide Level 32 21-32 mmol/L Blood Urea Nitrogen 15 7-18 mg/dL Creatinine 0.6 0.5-1.3 mg/dL Glomerular Filtration Rate Calc 104 >90 mL/min Random Glucose 132 H 70-105 mg/dL Total Calcium 8.4 L 8.5-10.1 mg/dL Phosphorus Level 3.0 2.5-4.9 mg/dL Magnesium Level 2.00 1.80-2.40 mg/dL Bedside Glucose Comment Notified Nurse Current Medications Medications (Trade) Dose Ordered Sig/Bethany Route PRN Reason Start Time Stop Time Status Last Admin Dose Admin Acetaminophen (TYLenol 325MG TAB) 650 mg Q6H PRN PO FEVER/MILD PAIN LEVEL 1-3 09/17/24 01:00 10/17/24 00:59 Acetaminophen (TYLenol 650MG SUPPOSITORY) 650 mg Q6H PRN RC FEVER / MILD PAIN 1-3 IF NPO 09/17/24 01:00 10/17/24 00:59 Albuterol Sulfate (Proventil 0.083% 2.5mg/3ml) 2.5 mg [id number] IH 09/17/24 06:00 10/17/24 05:59 09/17/24 11:49 2.5 MG Docusate Sodium (COLace 100MG CAP) 100 mg BID PRN PO CONSTIPATION 09/17/24 01:00 10/17/24 00:59 Doxycycline Hyclate (Doxycycline 100mg+NS 250ml) 100 mg BID IV 09/17/24 09:00 09/27/24 08:59 09/18/24 20:12 100 MG Enoxaparin Sodium (Lovenox) 40 mg DAILY SQ 09/17/24 09:00 10/17/24 08:59 09/18/24 09:26 40 MG Famotidine (Pepcid 20mg Tab) 20 mg BID PO 09/17/24 09:00 10/17/24 08:59 09/18/24 20:12 20 MG Fluticasone Propionate (FLOnase 50 mcg/ spray 16g bottle) 1 SPRAY DAILY EN 09/19/24 09:00 10/17/24 16:29 Fluticasone Propionate (FLOnase 50 mcg/ spray 16g bottle) 1 sprays DAILY EN 09/17/24 16:30 09/19/24 07:11 DC 09/18/24 09:29 1 SPRAYS Guaifenesin (RobiTUSSin SUGAR-FREE 100 MG/ 5 ML UDCUP) 600 mg Q6H PRN PO COUGH 09/17/24 01:00 10/17/24 00:59 Hydralazine HCl (APRESOLine 20MG INJ) 10 mg Q6H PRN IV SBP GREATER THAN 180 09/17/24 01:00 10/17/24 00:59 Insulin Human Regular (humuLIN R 100 UNIT/ML 3ML) INSULIN SLIDING SCAL... ACHS SQ 09/17/24 07:30 10/17/24 07:29 09/17/24 17:02 4 UNIT Ipratropium [place] (AtrovENT UD) 0.5 mg [id number] IH 09/17/24 06:00 10/17/24 05:59 09/19/24 06:44 0.5 MG Lactulose (Constulose 20gm/ 30ml Udcup) 20 gm Q6H PRN PO CONSTIPATION 09/17/24 01:00 10/17/24 00:59 Methylprednisolone Sodium Succinate (Solu-medROL 40MG) 60 mg Q8H IVP 09/19/24 08:00 10/17/24 07:59 Methylprednisolone Sodium Succinate (Solu-medROL 125MG) 60 mg Q8H IVP 09/17/24 08:00 09/19/24 07:12 DC 09/19/24 00:03 60 MG Montelukast Sodium (SinguLAIR) 10 mg HS PO 09/17/24 04:10 10/17/24 04:09 09/18/24 20:12 10 MG Nicotine (Nicoderm) 14 mg DAILY TD 09/17/24 04:10 10/17/24 04:09 09/18/24 09:24 14 MG Ondansetron HCl (zoFRAN 4MG INJ) 4 mg Q6H PRN IVP NAUSEA/VOMITING 09/17/24 01:00 10/17/24 00:59 Temazepam (restORIL 15 MG CAP) 15 mg HS PRN PO INSOMNIA/SLEEP 09/17/24 01:00 10/17/24 00:59 DIAGNOSTICS / RADIOLOGY: [ ] ASSESSMENT: Acute hypoxemic respiratory failure, POA BUCIO with minimal exertion POA Acute exacerbation of COPD with asthma/wheezing, POA Pulmonary vascular congestion with superimposed pneumonitis, POA Pulmonary cachexia due to COPD Leukocytosis Electrolyte derangement (hyponatremia, hypochloremia) Dehydration Hyperglycemia Nicotine dependence Cannabis use disorder Chronic problem list: Asthma, hypertension, anxiety, tobacco and cannabis abuse PLAN: Transfer to PCCU floor continue with O2 at 2 L nasal cannula, titrate to keep SpO2 equal to greater than 92%. titrate as tolerated Albuterol and Atrovent scheduled q.6 hours. and IV steroids Robitussin DM as needed for cough. continue doxycycline 100 mg IV b.i.d.. continue Montelukast 10 mg PO daily. Nicotine patch. ; Education on smoking cessation. encouraged IS usage and ambulation will get PT services to eval and treat. one dose of xanax 0.5 mg po x1 stat blood gases Patient is to continue to follow up with pulmonology as an outpatient evaluation and treatment of COPD/asthma frequent exacerbations. P.r.n. medications for: Pain, nausea, vomiting, fever, constipation, hyperglycemia. Glucometer checks a.c. and HS with insulin regular sliding scale per protocol as needed. Blood pressure checks every4 hours and as needed. Reconcile home medications once available. replaced electrolytes and treat accordingly. DVT and GI prophylaxis. time spent > 35 min case discussed with DR Jonathan Barrios. agreed with plan of care. ATTESTATION BY PHYSICIAN I have seen and examined the patient. I reviewed the documentation, medical decision making, and treatment plan as noted by the mid-level provider above. I agree with the findings and plan of care. Johanne Castillo MD, ELIZABETH NP Sep 19, 2024 09:28
[2024-09-19] MEDS: fluTICasone proPIONate 50MCG/SPRAY 16 GM BOTTLE EN SCH (09:57)
[2024-09-19] MEDS: Solu-medROL 40MG VIAL IVP SCH (10:00)
[2024-09-19 10:41] LABS: ALBUMIN 3.4 g/dL (3.5-5.0); BILIRUBIN,TOTAL 0.4 mg/dL (0.2-1.0); CREATININE 0.5 mg/dL (0.5-1.3); MAGNESIUM 2.1 mg/dL (1.80-2.40); TOTAL PROTEIN, SERUM 6.3 g/dL (6.0-8.3)
--- NOTE | 2024-09-19 12:00 | NUR ---
Order received for PT to ambulate however patient refused stating he is having increased difficulty breathing. Informed nurse, Cathy. Patient to be transferred to second floor. PT team to follow.
[2024-09-19 12:23] LABS: ABG BASE EXCESS 7.7 mmol/L (-2.0-3.0); ABG HCO3 36.2 mmol/L (21.0-28.0); ABG OXYGEN SATURATION 56.2 % (94.0-98.0); ABG PCO2 68 mmHg (35-48); ABG PH 7.344 (7.350-7.450); PO2, ARTERIAL BG < 45.0 mmHg (83.0-108.0); VENT MODE, BG 3L NC (ROOM AIR)
[2024-09-19 12:37] LABS: ABG BASE EXCESS 3.3 mmol/L (-2.0-3.0); ABG HCO3 30.6 mmol/L (21.0-28.0); ABG PCO2 57 mmHg (35-48); ABG PH 7.346 (7.350-7.450); DEVICE COMMENT RN MIRANDA; PO2, ARTERIAL BG 74.6 mmHg (83.0-108.0); VENT MODE, BG NC (ROOM AIR)
--- NOTE | 2024-09-19 13:52 | NUR ---
[facility], REPORT CALLED TO ATWANA CALVIN.
--- NOTE | 2024-09-19 20:24 | NUR ---
PT LAYING IN BED WITH THE HEAD OF THE BED ELEVATED.PT DOES NOT APPEAR TO BE IN ANY DISTRESS.INSTRUCTED PT TO USE THE CALL LIGHT FOR ANY ASSISTANCE WHEN NEEDED.PT UNDERSTOOD BED IS LOW AND LOCKED CALL LIGHT WITHIN REACH .
--- NOTE | 2024-09-19 20:46 | CONS ---
[facility] CONSULTATION NOTE Date Patient Seen: Sep 19, 2024 Time of Visit: 14:28 Supervising Physician: ESTEFANY STAPLETON MD Reason for Consultation: Multifocal Pneumonia suspected PCP Primary Care Physician: Jeferson Pfeiffer Outpatient Specialists: [ ] Inpatient Consults: DR. ALVINO PRUITT, PROBLEM LIST: Acute hypoxemic respiratory failure, POA Acute exacerbation of COPD with asthma/wheezing, POA Pulmonary vascular congestion with superimposed pneumonitis, POA Pulmonary cachexia due to COPD Leukocytosis Electrolyte derangement (hyponatremia, hypochloremia) Dehydration Hyperglycemia Nicotine dependence Cannabis use disorder Chronic problem list: Asthma, hypertension, anxiety, tobacco and cannabis abuse HPI: Patient is a 69 year old gentleman with history of severe smocking 2 pack per day for several years, significant past medical history for asthma, hypertension, anxiety, cannabis abuse. surgical history of appendectomy at the age 11 yrs old, came into the hospital due to SOB found with signs of COPD exacerbation admitted for further evaluation and treatment, he is awake, alert, well oriented, not in distress at this moment, nicotine patch to right arm denies fever, chills, chest pain or palpitations, denies nausea or vomiting , no abdominal pain, denies diarrhea or constipation he is currently on steroids, nebulizer treatments and antibiotic, he will continue with current medical management and follow up closely. PAST MEDICAL HX: see above PAST SURGICAL HX: noncontributory SOCIAL HISTORY: No tobacco, ETOH, or illicit drug use Coded Allergies: No Known Drug Allergies (Unverified Allergy, Unknown, 09/16/24) REVIEW OF SYSTEMS: 12 point ROS reviewed with patient. Pertinent positives mentioned above. Otherwise negative. PHYSICAL EXAM: GENERAL: alert, weak, awake oriented x 3 HEENT: EOMI, Sclera non icteric, moist mucosa NECK: Supple, no JVD, trachea midline LUNGS: decreased breath sounds HEART: Regular rate and rhythm. Normal S1 and S2, without murmurs ABD: Abdomen soft, nontender. Bowel sounds present EXT: No clubbing cyanosis or edema NEURO: Alert and oriented to person, follows commands Vital Signs (last 8hr) Date Time Temp Pulse Resp B/P (MAP) Pulse Ox O2 Delivery O2 Flow Rate FiO2 09/19/24 19:03 92 24 N/Cannula Low lpm 2.0 28 09/19/24 19:02 92 24 09/19/24 16:04 97.9 88 16 136/91 96 Nasal Cannula 3.0 LABS: Hematology Labs: Test 09/18/24 05:29 Range/Units White Blood Count 9.5 4.8-10.8 K/uL Red Blood Count 4.18 L 4.50-6.20 MIL/uL Hemoglobin 12.8 L 14.0-18.0 g/dL Hematocrit 39.1 L 42-54 % Mean Corpuscular Volume 93.5 79-99 fL Mean Corpuscular Hemoglobin 30.6 27.0-33.0 pg Mean Corpuscular Hemoglobin Concent 32.7 32.0-36.0 g/dL Red Cell Distribution Width 13.9 11.0-15.5 % Platelet Count 187 130-400 K/uL Mean Platelet Volume 10.3 7.5-10.5 fL Immature Granulocyte % (Auto) 0.5 0-1 % Neutrophils (%) (Auto) 92.2 H 40.0-77.0 % Lymphocytes (%) (Auto) 4.9 L 21.0-51.0 % Monocytes (%) (Auto) 2.4 L 3.0-13.0 % Eosinophils (%) (Auto) 0.0 0.0-8.0 % Basophils (%) (Auto) 0.0 0.0-5.0 % Neutrophils # (Auto) 8.8 H 1.8-7.7 K/uL Lymphocytes # (Auto) 0.5 L 1.0-4.8 K/uL Monocytes # (Auto) 0.2 0.1-1.0 K/uL Eosinophils # (Auto) 0.00 0.00-0.70 K/uL Basophils # (Auto) 0.00 0.00-0.20 K/uL Absolute Immature Granulocyte (auto 0.05 0-1 K/uL Nucleated Red Blood Cells 0.0 0.0-0.19 % Chemistry Labs: Test 09/19/24 15:25 09/19/24 10:18 09/18/24 05:29 Range/Units Whole Blood Glucose 131 H 70-110 MG/DL Sodium Level 140 136-145 mmol/L Potassium Level 4.0 3.5-5.1 mmol/L Chloride Level 99 L 101-111 mmol/L Carbon Dioxide Level 38 H 21-32 mmol/L Blood Urea Nitrogen 19 H 7-18 mg/dL Creatinine 0.5 0.5-1.3 mg/dL Glomerular Filtration Rate Calc 110 >90 mL/min Random Glucose 127 H 70-105 mg/dL Total Calcium 8.6 8.5-10.1 mg/dL Magnesium Level 2.10 1.80-2.40 mg/dL Total Bilirubin 0.4 0.2-1.0 mg/dL Aspartate Amino Transf (AST/SGOT) 32 10-37 U/L Alanine Aminotransferase (ALT/SGPT) 63 12-78 U/L Alkaline Phosphatase 56 50-136 U/L C-Reactive Protein, Quantitative 6.30 H 0.5-3.0 mg/L Total Protein 6.3 6.0-8.3 g/dL Albumin 3.4 L 3.5-5.0 g/dL Procalcitonin < 0.05 L 0.05-0.5 ng/mL Phosphorus Level 3.0 2.5-4.9 mg/dL DIAGNOSTICS / RADIOLOGY RESULTS: [ ] PLAN Continue with antibiotic therapy: Doxycycline 100 mg IV BID continue with steroids: Solumedrol 60 mg IV every 8 hours Continue with nebulizer treatments Albuterol 2.5 mg neb every 6 hours NEURO: Minimize central acting medications as possible. Maintain fall precautions, adequate lighting during the day PULMONARY: Supplemental 02 as needed. Maintain aspiration precautions at all times CARDIOVASCULAR: Follow hemodynamics. Vital signs per facility protocol GI & NUTRITION: Continue with nutritional support. Continue stool softeners and laxatives as needed. KIDNEYS & ELECTROLYTES: Strict monitoring of intake, output and overall fluid balance. Avoid nephrotoxic medications to the extent possible. Medications to be dosed according to renal function. Monitor electrolytes and replace as needed ENDOCRINE: Maintain blood glucose between 100-180 at all times. Hypoglycemia protocol in place INFECTIOUS DISEASE: Trend temperature, WBC and procalcitonin level Follow cultures, deescalate antibiotics as soon as possible. Panculture if new onset fever ONCOLOGY/HEMATOLOGY/COAGULATION: Monitor for s/s of bleeding Monitor hemoglobin, coagulation studies as needed SKIN: Pressure ulcer prevention per facility protocol Specialty mattress ORTHO/REHAB: Continue PT/OT Prophylaxis: Continue GI and DVT prophylaxis Code Status: Full Resuscitation Disposition: TBD ATTESTATION BY PHYSICIAN Documentation assistance provided by a scribe, information recorded by the scribe was done at my direction and has been reviewed and validated by me." PIETER ALLISON MD I personally scribed for PIETER ALLISON MD ([email or web address]) on 09/19/24 at 20:46. Electronically submitted by Constance Aguilar ([email or web address]). PIETER ALLISON MD Sep 19, 2024 20:46
--- NOTE | 2024-09-19 21:48 | NUR ---
PAGED PERSON RETAIL LOSS PREVENTION SPECIALIST FOR HOSPITALIST REGARDING PT COMPLAINING OF FEELING VERY ANXIOUS. CALL BACK FROM COLEEN BARRETT MERCHANDISING MANAGER ,UPDATED HIM THAT PT IS COMPLAINING OF FEELING VERY ANXIOUS . PER MERCHANDISING MANAGER ADMINISTER XANAX 0.5MG PO ONCE.
[2024-09-19] MEDS: ALPRAZolam 0.5 MG TABLET PO ONE (22:04)
--- NOTE | 2024-09-19 22:18 | CONS ---
[facility] ADDENDUM FOR CONSULTATION NOTE Date Patient Seen: Sep 19, 2024 Time of Visit: Supervising Physician: PIETER ALLISON Reason for Consultation: ACUTE RESPIRATORY FAILURE DUE TO COPD EXACERBATION PROBLEM LIST: Acute hypoxemic respiratory failure, POA Acute exacerbation of COPD with asthma/wheezing, POA Pulmonary vascular congestion with superimposed pneumonitis, POA Pulmonary cachexia due to COPD Leukocytosis Electrolyte derangement (hyponatremia, hypochloremia) Dehydration Hyperglycemia Nicotine dependence Cannabis use disorder Chronic problem list: Asthma, hypertension, anxiety, tobacco and cannabis abuse HPI: Patient is a 69 year old gentleman with history of severe smocking 2 pack per day for several years, significant past medical history for asthma, hypertension, anxiety, cannabis abuse. surgical history of appendectomy at the age 11 yrs old, came into the hospital due to SOB found with signs of COPD exacerbation admitted for further evaluation and treatment, he is awake, alert, well oriented, not in distress at this moment, nicotine patch to right arm denies fever, chills, chest pain or palpitations, denies nausea or vomiting , no abdominal pain, denies diarrhea or constipation he is currently on steroids, nebulizer treatments and antibiotic, he will continue with current medical management and follow up closely. PAST MEDICAL HX: see above PAST SURGICAL HX: noncontributory SOCIAL HISTORY: No tobacco, ETOH, or illicit drug use Coded Allergies: No Known Drug Allergies (Unverified Allergy, Unknown, 09/16/24) REVIEW OF SYSTEMS: 12 point ROS reviewed with patient. Pertinent positives mentioned above. Otherwise negative. PHYSICAL EXAM: GENERAL: alert, weak, awake oriented x 3 HEENT: EOMI, Sclera non icteric, moist mucosa NECK: Supple, no JVD, trachea midline LUNGS: decreased breath sounds HEART: Regular rate and rhythm. Normal S1 and S2, without murmurs ABD: Abdomen soft, nontender. Bowel sounds present EXT: No clubbing cyanosis or edema NEURO: Alert and oriented to person, follows commands Vital Signs (last 8hr) Date Time Temp Pulse Resp B/P (MAP) Pulse Ox O2 Delivery O2 Flow Rate FiO2 09/19/24 19:15 98.4 92 20 139/90 97 Nasal Cannula 3.0 09/19/24 19:03 92 24 N/Cannula Low lpm 2.0 28 09/19/24 19:02 92 24 09/19/24 16:04 97.9 88 16 136/91 96 Nasal Cannula 3.0 LABS: Hematology Labs: Test 09/18/24 05:29 Range/Units White Blood Count 9.5 4.8-10.8 K/uL Red Blood Count 4.18 L 4.50-6.20 MIL/uL Hemoglobin 12.8 L 14.0-18.0 g/dL Hematocrit 39.1 L 42-54 % Mean Corpuscular Volume 93.5 79-99 fL Mean Corpuscular Hemoglobin 30.6 27.0-33.0 pg Mean Corpuscular Hemoglobin Concent 32.7 32.0-36.0 g/dL Red Cell Distribution Width 13.9 11.0-15.5 % Platelet Count 187 130-400 K/uL Mean Platelet Volume 10.3 7.5-10.5 fL Immature Granulocyte % (Auto) 0.5 0-1 % Neutrophils (%) (Auto) 92.2 H 40.0-77.0 % Lymphocytes (%) (Auto) 4.9 L 21.0-51.0 % Monocytes (%) (Auto) 2.4 L 3.0-13.0 % Eosinophils (%) (Auto) 0.0 0.0-8.0 % Basophils (%) (Auto) 0.0 0.0-5.0 % Neutrophils # (Auto) 8.8 H 1.8-7.7 K/uL Lymphocytes # (Auto) 0.5 L 1.0-4.8 K/uL Monocytes # (Auto) 0.2 0.1-1.0 K/uL Eosinophils # (Auto) 0.00 0.00-0.70 K/uL Basophils # (Auto) 0.00 0.00-0.20 K/uL Absolute Immature Granulocyte (auto 0.05 0-1 K/uL Nucleated Red Blood Cells 0.0 0.0-0.19 % Chemistry Labs: Test 09/19/24 20:47 09/19/24 10:18 09/18/24 05:29 Range/Units Whole Blood Glucose 143 H 70-110 MG/DL Sodium Level 140 136-145 mmol/L Potassium Level 4.0 3.5-5.1 mmol/L Chloride Level 99 L 101-111 mmol/L Carbon Dioxide Level 38 H 21-32 mmol/L Blood Urea Nitrogen 19 H 7-18 mg/dL Creatinine 0.5 0.5-1.3 mg/dL Glomerular Filtration Rate Calc 110 >90 mL/min Random Glucose 127 H 70-105 mg/dL Total Calcium 8.6 8.5-10.1 mg/dL Magnesium Level 2.10 1.80-2.40 mg/dL Total Bilirubin 0.4 0.2-1.0 mg/dL Aspartate Amino Transf (AST/SGOT) 32 10-37 U/L Alanine Aminotransferase (ALT/SGPT) 63 12-78 U/L Alkaline Phosphatase 56 50-136 U/L C-Reactive Protein, Quantitative 6.30 H 0.5-3.0 mg/L Total Protein 6.3 6.0-8.3 g/dL Albumin 3.4 L 3.5-5.0 g/dL Procalcitonin < 0.05 L 0.05-0.5 ng/mL Phosphorus Level 3.0 2.5-4.9 mg/dL DIAGNOSTICS / RADIOLOGY RESULTS: [ ] PLAN Continue with antibiotic therapy: Doxycycline 100 mg IV BID continue with steroids: Solumedrol 60 mg IV every 8 hours Continue with nebulizer treatments Albuterol 2.5 mg neb every 6 hours NEURO: Minimize central acting medications as possible. Maintain fall precautions, adequate lighting during the day PULMONARY: Supplemental 02 as needed. Maintain aspiration precautions at all times CARDIOVASCULAR: Follow hemodynamics. Vital signs per facility protocol GI & NUTRITION: Continue with nutritional support. Continue stool softeners and laxatives as needed. KIDNEYS & ELECTROLYTES: Strict monitoring of intake, output and overall fluid balance. Avoid nephrotoxic medications to the extent possible. Medications to be dosed according to renal function. Monitor electrolytes and replace as needed ENDOCRINE: Maintain blood glucose between 100-180 at all times. Hypoglycemia protocol in place INFECTIOUS DISEASE: Trend temperature, WBC and procalcitonin level Follow cultures, deescalate antibiotics as soon as possible. Panculture if new onset fever ONCOLOGY/HEMATOLOGY/COAGULATION: Monitor for s/s of bleeding Monitor hemoglobin, coagulation studies as needed SKIN: Pressure ulcer prevention per facility protocol Specialty mattress ORTHO/REHAB: Continue PT/OT Prophylaxis: Continue GI and DVT prophylaxis Code Status: Full Resuscitation Disposition: TBD ATTESTATION BY PHYSICIAN Documentation assistance provided by a scribe, information recorded by the scribe was done at my direction and has been reviewed and validated by me." PIETER ALLISON MD I personally scribed for PIETER ALLISON MD ([email or web address]) on 09/19/24 at 22:18. Electronically submitted by Constance Aguilar ([email or web address]). PIETER ALLISON MD Sep 19, 2024 22:18
--- NOTE | 2024-09-19 23:00 | NUR ---
PER RT ,PT REFUSED TO USE THE BIPAP FOR THE NIGHT . EDUCATED PT ON THE IMPORTANCE OF USING THE BIPAP .PT REFUSED.
[2024-09-19] MEDS: ondanSETRON 4MG INJ IVP PRN (23:33)
[2024-09-20] VITALS (15 sets, daily range): BP systolic 97–144; BP diastolic 68–84; PULSE 78–103; RESP 16–22; TEMP 97.3–98.3; O2SAT 82–96
[2024-09-20 03:56] LABS: BASOPHILS # (AUTO) 0.02 K/uL (0.00-0.20); BASOPHILS % (AUTO) 0.1 % (0.0-5.0); EOSINOPHILS # (AUTO) 0.01 K/uL (0.00-0.70); EOSINOPHILS % (AUTO) 0.1 % (0.0-8.0); HEMATOCRIT 44.2 % (42-54); IMMATURE GRANULOCYTE ABSOLUTE 0.08 K/uL (0-1); LYMPHOCYTES # (AUTO) 0.4 K/uL (1.0-4.8); LYMPHOCYTES % (AUTO) 2.7 % (21.0-51.0); MEAN CORPUSCULAR HEMOGLOBIN 30.4 pg (27.0-33.0); MEAN CORPUSCULAR HGB CONC 31.7 g/dL (32.0-36.0); MEAN CORPUSCULAR VOLUME 95.9 fL (79-99); MONOCYTES # (AUTO) 0.5 K/uL (0.1-1.0); MONOCYTES % (AUTO) 3.5 % (3.0-13.0); NEUTROPHILS # (AUTO) 12.9 K/uL (1.8-7.7); PLATELET COUNT (AUTO) 220 K/uL (130-400); RED BLOOD CELL COUNT(AUTO) 4.61 MIL/uL (4.50-6.20); RED CELL DISTRIBUTION WIDTH 13.7 % (11.0-15.5); WHITE BLOOD COUNT (AUTO) 13.8 K/uL (4.8-10.8)
[2024-09-20 04:07] LABS: BILIRUBIN,TOTAL 0.3 mg/dL (0.2-1.0); CREATININE 0.7 mg/dL (0.5-1.3); MAGNESIUM 2.3 mg/dL (1.80-2.40); POTASSIUM 4.2 mmol/L (3.5-5.1); TOTAL PROTEIN, SERUM 5.8 g/dL (6.0-8.3)
--- NOTE | 2024-09-20 05:33 | NUR ---
PAGED PERSON PATTERNMAKER HELPER FOR HOSPITALIST REGARDING PTS [facility] OF 41 WITH MORNING LABS AWAITING CALL BACK .
--- NOTE | 2024-09-20 06:31 | NUR ---
PAGED PERSON COLLAR SHAPER OPERATOR FOR HOSPITALIST REGARDING PTS [facility] OF 41 WITH MORNING LABS AWAITING CALL BACK .
[2024-09-20 11:58] LABS: ABG BASE EXCESS 10.2 mmol/L (-2.0-3.0); ABG HCO3 39.3 mmol/L (21.0-28.0); ABG OXYGEN SATURATION 73.7 % (94.0-98.0); ABG PCO2 74 mmHg (35-48); ABG PH 7.344 (7.350-7.450); DEVICE COMMENT RBIMELDA; PO2, ARTERIAL BG < 45.0 mmHg (83.0-108.0); VENT MODE, BG RA (ROOM AIR)
--- NOTE | 2024-09-20 12:57 | PN ---
[facility] PROGRESS NOTE Date Patient Seen: Sep 20, 2024 Time of Visit: 12:57 Supervising Physician: Dr. Beckham PROBLEM LIST: Acute hypoxemic respiratory failure, POA Acute exacerbation of COPD with asthma/wheezing, POA Pulmonary vascular congestion with superimposed pneumonitis, POA Pulmonary cachexia due to COPD Leukocytosis Electrolyte derangement (hyponatremia, hypochloremia) Dehydration Hyperglycemia Nicotine dependence Cannabis use disorder Chronic problem list: Asthma, hypertension, anxiety, tobacco and cannabis abuse INTERVAL HISTORY: 09/20 patient is awake alert and oriented x3 up in the bed not in acute distress. He remains on oxygen support at3 L nasal cannula with sats 93%. Resp iratory rate 16. Continue with oxygen support to keep sat greater than 92%. Patient had 6 minute walk test of oxygen and his saturation oxygen 82%. Case management to arrange for home O2. Otherwise this morning with WBC of 13.8 Up from 9.5 yesterday patient is on glucocorticoid which is likely the cause of leukocytosis. We will decrease steroid. Chemistry bicarb is 41 this up from 38. BUN 24 creatinine 0.7. We will hold diuretic for now. Otherwise continue with antibiotic doxy, add Rocephin for GN coverage. Keep PCCU given hypoxia. REVIEW OF SYSTEMS: 12 point ROS reviewed with patient. Pertinent positives mentioned above. Otherwise negative. PHYSICAL EXAM: GENERAL: alert, weak, awake oriented x 3 HEENT: EOMI, Sclera non icteric, moist mucosa NECK: Supple, no JVD, trachea midline LUNGS: decreased breath sounds HEART: Regular rate and rhythm. Normal S1 and S2, without murmurs ABD: Abdomen soft, nontender. Bowel sounds present EXT: No clubbing cyanosis or edema NEURO: Alert and oriented to person, follows commands Vital Signs (last 8hr) Date Time Temp Pulse Resp B/P (MAP) Pulse Ox O2 Delivery O2 Flow Rate FiO2 09/20/24 12:08 88 20 21 80 22 32 09/20/24 12:00 97.9 96 16 136/79 93 Nasal Cannula 3.0 09/20/24 11:24 95 20 09/20/24 07:49 97.7 98 16 97/68 97 Nasal Cannula 3.0 09/20/24 07:44 96 Nasal Cannula* 3 32 09/20/24 06:40 94 22 N/Cannula Low lpm 3.0 32 09/20/24 06:38 96 22 LABS: Hematology Labs: Test 09/20/24 03:23 Range/Units White Blood Count 13.8 H 4.8-10.8 K/uL Red Blood Count 4.61 4.50-6.20 MIL/uL Hemoglobin 14.0 14.0-18.0 g/dL Hematocrit 44.2 42-54 % Mean Corpuscular Volume 95.9 79-99 fL Mean Corpuscular Hemoglobin 30.4 27.0-33.0 pg Mean Corpuscular Hemoglobin Concent 31.7 L 32.0-36.0 g/dL Red Cell Distribution Width 13.7 11.0-15.5 % Platelet Count 220 130-400 K/uL Mean Platelet Volume 10.9 H 7.5-10.5 fL Immature Granulocyte % (Auto) 0.6 0-1 % Neutrophils (%) (Auto) 93.0 H 40.0-77.0 % Lymphocytes (%) (Auto) 2.7 L 21.0-51.0 % Monocytes (%) (Auto) 3.5 3.0-13.0 % Eosinophils (%) (Auto) 0.1 0.0-8.0 % Basophils (%) (Auto) 0.1 0.0-5.0 % Neutrophils # (Auto) 12.9 H 1.8-7.7 K/uL Lymphocytes # (Auto) 0.4 L 1.0-4.8 K/uL Monocytes # (Auto) 0.5 0.1-1.0 K/uL Eosinophils # (Auto) 0.01 0.00-0.70 K/uL Basophils # (Auto) 0.02 0.00-0.20 K/uL Absolute Immature Granulocyte (auto 0.08 0-1 K/uL Nucleated Red Blood Cells 0.0 0.0-0.19 % Chemistry Labs: Test 09/20/24 11:50 09/20/24 03:23 09/19/24 10:18 Range/Units Whole Blood Glucose 151 H 70-110 MG/DL Sodium Level 141 136-145 mmol/L Potassium Level 4.2 3.5-5.1 mmol/L Chloride Level 100 L 101-111 mmol/L Carbon Dioxide Level 41 *H 21-32 mmol/L Blood Urea Nitrogen 25 H 7-18 mg/dL Creatinine 0.7 0.5-1.3 mg/dL Glomerular Filtration Rate Calc 100 >90 mL/min Random Glucose 139 H 70-105 mg/dL Total Calcium 8.3 L 8.5-10.1 mg/dL Magnesium Level 2.30 1.80-2.40 mg/dL Total Bilirubin 0.3 # 0.2-1.0 mg/dL Aspartate Amino Transf (AST/SGOT) 22 10-37 U/L Alanine Aminotransferase (ALT/SGPT) 48 # 12-78 U/L Alkaline Phosphatase 52 50-136 U/L Total Protein 5.8 L 6.0-8.3 g/dL Albumin 3.0 L 3.5-5.0 g/dL C-Reactive Protein, Quantitative 6.30 H 0.5-3.0 mg/L Procalcitonin < 0.05 L 0.05-0.5 ng/mL DIAGNOSTICS / RADIOLOGY RESULTS: [ ] PLAN Continue with antibiotic therapy: Doxycycline 100 mg IV BID continue with steroids: Solumedrol 60 mg IV every 8 hours Continue with nebulizer treatments Albuterol 2.5 mg neb every 6 hours NEURO: Minimize central acting medications as possible. Maintain fall precautions, adequate lighting during the day PULMONARY: Supplemental 02 as needed. Maintain aspiration precautions at all times CARDIOVASCULAR: Follow hemodynamics. Vital signs per facility protocol GI & NUTRITION: Continue with nutritional support. Continue stool softeners and laxatives as needed. KIDNEYS & ELECTROLYTES: Strict monitoring of intake, output and overall fluid balance. Avoid nephrotoxic medications to the extent possible. Medications to be dosed according to renal function. Monitor electrolytes and replace as needed ENDOCRINE: Maintain blood glucose between 100-180 at all times. Hypoglycemia protocol in place INFECTIOUS DISEASE: Trend temperature, WBC and procalcitonin level Follow cultures, deescalate antibiotics as soon as possible. Panculture if new onset fever ONCOLOGY/HEMATOLOGY/COAGULATION: Monitor for s/s of bleeding Monitor hemoglobin, coagulation studies as needed SKIN: Pressure ulcer prevention per facility protocol Specialty mattress ORTHO/REHAB: Continue PT/OT Prophylaxis: Continue GI and DVT prophylaxis Code Status: Full Resuscitation Disposition: [facility] Sep 20, 2024 12:57
--- NOTE | 2024-09-20 13:38 | NUR ---
Nutritional Note: Chart, meds, and labs Reviewed. Recommend: -if medically feasible consider appetite stimulant if PO intake <50% of most meals taken. -Omga 3 vitamin supplement -Check HA1C to obtain the three-month average of blood sugar. -Check folate, iron, vit b12, and Vit D levels to rule out deficiencies. -Check Lipid Panel -Nephrovite MVI combination of B vitamins may be used to treat or prevent vitamin deficiency due to poor diet. -Plumocare BID between meals. -ProStat BID (30 ml) JELLO -Magic Cup 4oz w/ PM tray: Provides 9gm pro/ 290kcal and 20 vitamins and minerals. Weott to serve with meals as a means of adding calories and protein for unintended weight loss. -Monitor PO intake%, wt, and labs -If No BM >3days consider bowel stimulant. - Please notify RD if additional nutrition concerns arise. SEE RD Nutritional Assessment for additional assessment information. Addendum: 09/20/24 at [address] Amended: Links added.
--- NOTE | 2024-09-20 14:46 | PN ---
[facility] PROGRESS NOTE Date of Service: Sep 20, 2024 Time of Service: 14:[address] Castillo SUBJECTIVE: [ ] This is a 69-year-old male was admitted on September 17, 2024 with chief complaints of worsening shortness a breath over two days. ER workup was consistent with mild bilateral pulmonary infiltrates mild pulmonary vascular congestion with possible superimposed pneumonitis. Patient was seen and examined with Dr. Castillo The patient appear resp distress upon to complete a full sentence without gasping for air. He just received a duoneb treatment. RR > 28 anxious. WE will transfer to PCCU for closer observation given to high risk for decompensate airway. 09/20/24 patient was seen by nurse practitioner and physician during rounding in room 221 comfortably lying in bed. Patient at this moment is on 2 L nasal cannula satting 94%. Patient is refusing BiPAP as ordered by yard jockey. Patient is also refusing physical therapy for evaluation. Nurse practitioner explained to the patient importance of BiPAP and physical therapy evaluation. Patient agree for next physical therapy evaluation but so disagrees with BiPAP. Prior discharge we will order 6 minute walk. Continue doxycycline 100 mg IV b.i.d. and steroid as ordered by yard jockey we will try to wean off once appropriate. A.m. labs. REVIEW OF SYSTEMS 12-point ROS reviewed with patient. All pertinent positives mentioned above. Otherwise negative, nonpertinent, and noncontributory. PHYSICAL EXAM GENERAL APPEARANCE: The patient is awake, alert, and oriented x4. Cachectic. NEUROLOGICAL: Cranial nerves II-XII grossly intact. Motor is 5/5 in bilateral upper and lower extremities proximal to distal. No sensory deficits. HEENT: Face is symmetric. Pupils are equal and reactive. Extraocular movements are intact. NECK: Supple. No JVD. No thyromegaly. No submental, submandibular, pre- /postauricular, occipital or supraclavicular lymphadenopathy. CHEST: Normal chest expansion. No Telemetry. LUNGS: + wheezing. Tachypneic, retractions, abdominal breathing. CARDIOVASCULAR: Regular. S1 and S2 normal. No appreciable rubs, murmurs or gallops. ABDOMEN: Soft, nontender, and nondistended. There is no rebound, voluntary guarding, or rigidity. : Deferred. No Jasmine. EXTREMITIES: Non-edematous and not cyanotic. No clubbing. Good capillary refill. SKIN: No skin breakdown. Vital Signs (last 8hr) Date Time Temp Pulse Resp B/P (MAP) Pulse Ox O2 Delivery O2 Flow Rate FiO2 09/20/24 12:08 88 20 21 80 22 32 09/20/24 12:00 97.9 96 16 136/79 93 Nasal Cannula 3.0 09/20/24 11:24 95 20 09/20/24 07:49 97.7 98 16 97/68 97 Nasal Cannula 3.0 09/20/24 07:44 96 Nasal Cannula* 3 32 LABS: Laboratory: Test 09/20/24 11:57 09/20/24 11:50 09/20/24 03:23 09/19/24 12:35 Range/Units Blood Gas Specimen Type Arterial Arterial Blood pH 7.344 L 7.350-7.450 Arterial Blood Partial Pressure CO2 74 *H 35-48 mmHg Arterial Blood Partial Pressure O2 < 45.0 *L 83.0-108.0 mmHg Arterial Blood HCO3 39.3 H 21.0-28.0 mmol/L Arterial Blood Oxygen Saturation 73.7 L 94.0-98.0 % Arterial Blood Base Excess 10.2 H -2.0-3.0 mmol/L Blood Gas Temperature 37.0 35.5-37.0 CELSIUS Blood Gas Vent Mode RA ROOM AIR FiO2 21.0 % Blood Gas Specimen Comment RBIMELDA Whole Blood Glucose 151 H 70-110 MG/DL White Blood Count 13.8 H 4.8-10.8 K/uL Red Blood Count 4.61 4.50-6.20 MIL/uL Hemoglobin 14.0 14.0-18.0 g/dL Hematocrit 44.2 42-54 % Mean Corpuscular Volume 95.9 79-99 fL Mean Corpuscular Hemoglobin 30.4 27.0-33.0 pg Mean Corpuscular Hemoglobin Concent 31.7 L 32.0-36.0 g/dL Red Cell Distribution Width 13.7 11.0-15.5 % Platelet Count 220 130-400 K/uL Mean Platelet Volume 10.9 H 7.5-10.5 fL Immature Granulocyte % (Auto) 0.6 0-1 % Neutrophils (%) (Auto) 93.0 H 40.0-77.0 % Lymphocytes (%) (Auto) 2.7 L 21.0-51.0 % Monocytes (%) (Auto) 3.5 3.0-13.0 % Eosinophils (%) (Auto) 0.1 0.0-8.0 % Basophils (%) (Auto) 0.1 0.0-5.0 % Neutrophils # (Auto) 12.9 H 1.8-7.7 K/uL Lymphocytes # (Auto) 0.4 L 1.0-4.8 K/uL Monocytes # (Auto) 0.5 0.1-1.0 K/uL Eosinophils # (Auto) 0.01 0.00-0.70 K/uL Basophils # (Auto) 0.02 0.00-0.20 K/uL Absolute Immature Granulocyte (auto 0.08 0-1 K/uL Nucleated Red Blood Cells 0.0 0.0-0.19 % Sodium Level 141 136-145 mmol/L Potassium Level 4.2 3.5-5.1 mmol/L Chloride Level 100 L 101-111 mmol/L Carbon Dioxide Level 41 *H 21-32 mmol/L Blood Urea Nitrogen 25 H 7-18 mg/dL Creatinine 0.7 0.5-1.3 mg/dL Glomerular Filtration Rate Calc 100 >90 mL/min Random Glucose 139 H 70-105 mg/dL Total Calcium 8.3 L 8.5-10.1 mg/dL Magnesium Level 2.30 1.80-2.40 mg/dL Total Bilirubin 0.3 # 0.2-1.0 mg/dL Aspartate Amino Transf (AST/SGOT) 22 10-37 U/L Alanine Aminotransferase (ALT/SGPT) 48 # 12-78 U/L Alkaline Phosphatase 52 50-136 U/L Total Protein 5.8 L 6.0-8.3 g/dL Albumin 3.0 L 3.5-5.0 g/dL Blood Gas Flow-by 2.00 0.00-15.00 L/min Test 09/19/24 10:18 Range/Units C-Reactive Protein, Quantitative 6.30 H 0.5-3.0 mg/L Procalcitonin < 0.05 L 0.05-0.5 ng/mL Current Medications Medications (Trade) Dose Ordered Sig/Bethany Route PRN Reason Start Time Stop Time Status Last Admin Dose Admin Acetaminophen (TYLenol 325MG TAB) 650 mg Q6H PRN PO FEVER/MILD PAIN LEVEL 1-3 09/17/24 01:00 10/17/24 00:59 Acetaminophen (TYLenol 650MG SUPPOSITORY) 650 mg Q6H PRN RC FEVER / MILD PAIN 1-3 IF NPO 09/17/24 01:00 10/17/24 00:59 Albuterol Sulfate (Proventil 0.083% 2.5mg/3ml) 2.5 mg [id number] IH 09/17/24 06:00 10/17/24 05:59 09/19/24 23:05 2.5 MG Docusate Sodium (COLace 100MG CAP) 100 mg BID PRN PO CONSTIPATION 09/17/24 01:00 10/17/24 00:59 Doxycycline Hyclate (Doxycycline 100mg+NS 250ml) 100 mg BID IV 09/17/24 09:00 09/27/24 08:59 09/20/24 09:36 100 MG Enoxaparin Sodium (Lovenox) 40 mg DAILY SQ 09/17/24 09:00 10/17/24 08:59 09/20/24 09:37 40 MG Famotidine (Pepcid 20mg Tab) 20 mg BID PO 09/17/24 09:00 10/17/24 08:59 09/20/24 09:36 20 MG Fluticasone Propionate (FLOnase 50 mcg/ spray 16g bottle) 1 SPRAY DAILY EN 09/19/24 09:00 10/17/24 16:29 09/20/24 09:37 1 SPRAYS Fluticasone Propionate (FLOnase 50 mcg/ spray 16g bottle) 1 sprays DAILY EN 09/17/24 16:30 09/19/24 07:11 DC 09/18/24 09:29 1 SPRAYS Guaifenesin (RobiTUSSin SUGAR-FREE 100 MG/ 5 ML UDCUP) 600 mg Q6H PRN PO COUGH 09/17/24 01:00 10/17/24 00:59 Hydralazine HCl (APRESOLine 20MG INJ) 10 mg Q6H PRN IV SBP GREATER THAN 180 09/17/24 01:00 10/17/24 00:59 Insulin Human Regular (humuLIN R 100 UNIT/ML 3ML) INSULIN SLIDING SCAL... ACHS SQ 09/17/24 07:30 10/17/24 07:29 09/17/24 17:02 4 UNIT Ipratropium [place] (AtrovENT UD) 0.5 mg [id number] IH 09/17/24 06:00 10/17/24 05:59 09/20/24 11:23 0.5 MG Lactulose (Constulose 20gm/ 30ml Udcup) 20 gm Q6H PRN PO CONSTIPATION 09/17/24 01:00 10/17/24 00:59 Methylprednisolone Sodium Succinate (Solu-medROL 40MG) 40 mg Q8H IVP 09/20/24 16:00 10/20/24 15:59 Methylprednisolone Sodium Succinate (Solu-medROL 40MG) 60 mg Q8H IVP 09/19/24 08:00 09/20/24 12:15 DC 09/20/24 09:36 60 MG Methylprednisolone Sodium Succinate (Solu-medROL 125MG) 60 mg Q8H IVP 09/17/24 08:00 09/19/24 07:12 DC 09/19/24 00:03 60 MG Montelukast Sodium (SinguLAIR) 10 mg HS PO 09/17/24 04:10 10/17/24 04:09 09/19/24 20:24 10 MG Nicotine (Nicoderm) 14 mg DAILY TD 09/17/24 04:10 10/17/24 04:09 09/20/24 09:36 14 MG Ondansetron HCl (zoFRAN 4MG INJ) 4 mg Q6H PRN IVP NAUSEA/VOMITING 09/17/24 01:00 10/17/24 00:59 09/19/24 23:33 4 MG Temazepam (restORIL 15 MG CAP) 15 mg HS PRN PO INSOMNIA/SLEEP 09/17/24 01:00 10/17/24 00:59 DIAGNOSTICS / RADIOLOGY: [ ] ASSESSMENT: Acute hypoxemic respiratory failure, POA BUCIO with minimal exertion POA Acute exacerbation of COPD with asthma/wheezing, POA Pulmonary vascular congestion with superimposed pneumonitis, POA Pulmonary cachexia due to COPD Leukocytosis Electrolyte derangement (hyponatremia, hypochloremia) Dehydration Hyperglycemia Nicotine dependence Cannabis use disorder Chronic problem list: Asthma, hypertension, anxiety, tobacco and cannabis abuse PLAN: Transfer to PCCU floor continue with O2 at 2 L nasal cannula, titrate to keep SpO2 equal to greater than 92%. titrate as tolerated Albuterol and Atrovent scheduled q.6 hours. and IV steroids Robitussin DM as needed for cough. continue doxycycline 100 mg IV b.i.d.. continue Montelukast 10 mg PO daily. Nicotine patch. ; Education on smoking cessation. encouraged IS usage and ambulation will get PT services to eval and treat. one dose of xanax 0.5 mg po x1 Patient is to continue to follow up with pulmonology as an outpatient evaluation and treatment of COPD/asthma frequent exacerbations. P.r.n. medications for: Pain, nausea, vomiting, fever, constipation, hyperglycemia. Glucometer checks a.c. and HS with insulin regular sliding scale per protocol as needed. Blood pressure checks every4 hours and as needed. replaced electrolytes and treat accordingly. DVT and GI prophylaxis. time spent > 35 min case discussed with DR Jonathan Barrios. agreed with plan of care. ATTESTATION BY PHYSICIAN I have seen and examined the patient. I reviewed the documentation, medical decision making, and treatment plan as noted by the mid-level provider above. I agree with the findings and plan of care. Johanne Castillo MD, KATAR[facility] B DELIVERY DRIVER/SUPERVISOR Sep 20, 2024 14:46
[2024-09-20] MEDS: Solu-medROL 40MG VIAL IVP SCH (16:01)
[2024-09-20] MEDS: CEFTRIAXONE 2GM VIAL IVPB SCH (17:28)
--- NOTE | 2024-09-20 17:40 | NUR ---
CM NOTE/HOME O2 CM spoke to patient regarding d/c planning. Aware of home o2 needs. CM offered in network choices. Obtained [facility] for any accepting DME agency. CM explained that DME agency will let him know if qualifies for inogen or traditional concentrator. Verbalized understanding. CM sent referral to [facility] and notified Ricardo. Plan for possible d/c home tomorrow. CM to f/u. Addendum: 09/20/24 at 1742 by ESPERANZA GRACIA CM Amended: Links added.
[2024-09-21] VITALS (15 sets, daily range): BP systolic 109–164; BP diastolic 72–96; PULSE 72–95; RESP 16–20; TEMP 97.9–98.5; O2SAT 88–100
[2024-09-21 03:53] LABS: BASOPHILS # (AUTO) 0.01 K/uL (0.00-0.20); BASOPHILS % (AUTO) 0.1 % (0.0-5.0); EOSINOPHILS # (AUTO) 0.03 K/uL (0.00-0.70); EOSINOPHILS % (AUTO) 0.2 % (0.0-8.0); HEMATOCRIT 44.1 % (42-54); IMMATURE GRANULOCYTE ABSOLUTE 0.07 K/uL (0-1); LYMPHOCYTES # (AUTO) 0.6 K/uL (1.0-4.8); LYMPHOCYTES % (AUTO) 4.4 % (21.0-51.0); MEAN CORPUSCULAR HEMOGLOBIN 30.9 pg (27.0-33.0); MEAN CORPUSCULAR HGB CONC 31.5 g/dL (32.0-36.0); MONOCYTES % (AUTO) 6.6 % (3.0-13.0); NEUTROPHILS # (AUTO) 12.9 K/uL (1.8-7.7); NEUTROPHILS % (AUTO) 88.2 % (40.0-77.0); PLATELET COUNT (AUTO) 182 K/uL (130-400); RED CELL DISTRIBUTION WIDTH 13.5 % (11.0-15.5); WHITE BLOOD COUNT (AUTO) 14.6 K/uL (4.8-10.8)
[2024-09-21 04:02] LABS: ALBUMIN 2.8 g/dL (3.5-5.0); BILIRUBIN,TOTAL 0.3 mg/dL (0.2-1.0); CREATININE 0.6 mg/dL (0.5-1.3); MAGNESIUM 2.3 mg/dL (1.80-2.40); POTASSIUM 4.7 mmol/L (3.5-5.1); TOTAL PROTEIN, SERUM 5.4 g/dL (6.0-8.3)
--- NOTE | 2024-09-21 08:52 | NUR ---
Bed side report fall risk bracelet and bed alarm turned on and patient educated that these interventions are done for safety and for the patient to call when he needs help to get out of bed. At 0845 am patient called primary RN requesting fall risk bracelet to be removed and bed alarm to be disarmed. Patient stated that he is not at fall risk and this makes him feel "hospital imprisoned". Fall risk education provided to the patient by primary RN and CN. Despite education patient insisting on fall risk bracelet removal and to turn off bed alarm. Patient refused to sign refusal to submit to treatment/procedure form stating than when legal document is involved he needs to talk to his director special education. Patient is firm about removing the fall risk bracelet and bed alarm. Fall risk bracelet was removed and bed alarm turned off as per patient's request. Director and CN aware.
[2024-09-21] MEDS: ALPRAZolam 0.25 MG TABLET PO ONE (10:09)
[2024-09-21] MEDS ORDERED: PRED20B PO (11:56)
[2024-09-21] MEDS ORDERED: MONT-46 PO (11:56)
[2024-09-21] MEDS ORDERED: DOXY100T2 PO (11:56)
[2024-09-21] MEDS ORDERED: IPRNEB IH (11:56)
[2024-09-21] MEDS ORDERED: FAMO20TA8 PO (11:56)
--- NOTE | 2024-09-21 12:01 | DS ---
Discharge Summary Hospital Course Summary: DATE OF ADMISSION:[09/17/2024] DATE OF DISCHARGE:[09/21/2024] DISPOSITION:[Home] CONDITION:[Medically cleared] CONSULTANTS:[Television Receiver Analyzer] FOLLOW UP APPOINTMENTS:[PCP two days, sole conforming machine operator two days] PROCEDURES:[None] IMAGING: report attached to summary MICROBIOLOGY: report attached to summary ACTIVITY:[One-person assist/standby] HOME MEDICATIONS: see med recc NEW MEDICATIONS:[See med rec] EMERGENCY INSTRUCTIONS: The patient was instructed to present to the nearest Emergency departmentr or call 911 once their symptoms will return or worsen Saw Sharpener(s): This is a 69-year-old male was admitted on September 17, 2024 with chief complaints of worsening shortness a breath over two days. ER workup was consistent with mild bilateral pulmonary infiltrates mild pulmonary vascular con gestion with possible superimposed pneumonitis. Patient was seen and examined with Dr. Castillo The patient appear resp distress upon to complete a full sentence without gasping for air. He just received a duoneb treatment. RR > 28 anxious. WE will transfer to PCCU for closer observation given to high risk for decompensate airway. Patient was seen by nurse practitioner and physician during rounding see 11/10/2020 lying in the bed. Patient is on 2 L nasal cannula satting 96% at this moment. 6 minute walk was performed and patient did not pass. Case management is working on delivery of home oxygen to patient's home. Physical therapy also evaluated the patient and is recommending home with the home health, two wheeled walker and chair for shower. Home health to be set up outpatient with the PCP and walker we will be delivered to patient's home as well. Shower chair will be delivered outpatient once insurance approved. Patient continues to refuse BiPAP at night refuses to ambulate. Patient was zara ared by sole conforming machine operator to discharged home on prednisolone 40 mg daily x5 days. Follow-up with PCP in two days. Follow up with sole conforming machine operator in two days. Procedure(s): REVIEW OF SYSTEMS 12-point ROS reviewed with patient. All pertinent positives mentioned above. Otherwise negative, nonpertinent, and noncontributory. PHYSICAL EXAM GENERAL APPEARANCE: The patient is awake, alert, and oriented x4. Cachectic. NEUROLOGICAL: Cranial nerves II-XII grossly intact. Motor is 5/5 in bilateral upper and lower extremities proximal to distal. No sensory deficits. HEENT: Face is symmetric. Pupils are equal and reactive. Extraocular movements are intact. NECK: Supple. No JVD. No thyromegaly. No submental, submandibular, pre- /postauricular, occipital or supraclavicular lymphadenopathy. CHEST: Normal chest expansion. No Telemetry. LUNGS: + wheezing. Tachypneic, retractions, abdominal breathing. CARDIOVASCULAR: Regular. S1 and S2 normal. No appreciable rubs, murmurs or gallops. ABDOMEN: Soft, nontender, and nondistended. There is no rebound, voluntary guarding, or rigidity. : Deferred. No Jasmine. EXTREMITIES: Non-edematous and not cyanotic. No clubbing. Good capillary refill. SKIN: No skin breakdown. Assessment/Plan: ASSESSMENT: Acute hypoxemic respiratory failure, POA BUCIO with minimal exertion POA Acute exacerbation of COPD with asthma/wheezing, POA Pulmonary vascular congestion with superimposed pneumonitis, POA Pulmonary cachexia due to COPD Leukocytosis Electrolyte derangement (hyponatremia, hypochloremia) Dehydration Hyperglycemia Nicotine dependence Cannabis use disorder Chronic problem list: Asthma, hypertension, anxiety, tobacco and cannabis abuse Home Medications: Reported Medications Albuterol Sulfate (Proair Digihaler) 90 Mcg Aer.pw.bas, 1 AER IH Q6HPRN PRN for SHORTNESS OF BREATH 09/17/24 Albuterol Sulfate (Albuterol Sulfate) 1.25 Mg/3 Ml Vial.neb, 3 ML NEB Q6HPRN PRN for asthma 09/17/24 Fluticasone Propion/Salmeterol (Fluticasone-Salmeterol 100-50) 100 Mcg-50 Mcg/Dose Blst.w.dev, 1 CART PO BID 09/17/24 Fluticasone Propionate (Flonase Nasal [place]) 50 Mcg/Actuation [place], 1 SPRY EN BID 09/17/24 Time spent arranging discharge: 31-60 minutes ATTESTATION BY PHYSICIAN I have seen and examined the patient. I reviewed the documentation, medical decision making, and treatment plan as noted by the mid-level provider above. I agree with the findings and plan of care. LAY DANG MD, KATARZYNA [facility] Sep 21, 2024 12:01
[2024-09-21] MEDS ORDERED: FLUT1BLS11 PO (13:19)
[2024-09-21] MEDS ORDERED: BUDE10.7 IH (13:19)
--- NOTE | 2024-09-21 14:12 | NUR ---
CM NOTE CM spoke to patient regarding d/c planning. [employer] POC delivered. Patient reports tractor driver teamster is needing to deliver remaining DME once discharged. Patient states he has a friend that is willing to assist with ADL's but is not available until tomorrow. CM explained that Lisa STERN has cleared patient for discharge. CM offered short term SNF/rehab as possible d/c option. Patient declined. States he wants to return home. Discussed home health. Explained that home health nurse will not stay with patient 01/06. Patient verbalized understanding. States he is agreeable to home health. CM explained that services will need to be arranged as outpatient with PCP. CM offered to fax updated clinical to PCP to assist with arrangements. Patient agreed. CM obtained KEN. CM also discussed PT recommendations for walker and bench or shower chair. Patient declined any other DME. States he is okay with home o2 but does not have room for any other DME. States he will discuss walker or shower chair at f/u with PCP if he changes his mind. CM explained that Lisa WINDOW ASSEMBLER will be updated but more than likely will need to be discharged prior to 10 AM tomorrow. Patient verbalized understanding. CM offered to arrange EMS for discharge tomorrow if unable to find transportation. States he will be calling friends to schedule transport and notify them of discharge. CM to fax clinical to PCP and notify Kim with [facility]. Lisa STERN updated with above. States to leave current discharge order in place. CM updated Ricardo with [facility] about discharge date. CM also updated CM director with above. Addendum: 09/21/24 at 1421 by ESPERANZA GRACIA Amended: Links added.
--- NOTE | 2024-09-21 16:28 | PN ---
[facility] PROGRESS NOTE Date Patient Seen: Sep 21, 2024 Time of Visit: 16:26 Supervising Physician: Dr. Braun PROBLEM LIST: Acute hypoxemic respiratory failure, POA Acute exacerbation of COPD with asthma/wheezing, POA Pulmonary vascular congestion with superimposed pneumonitis, POA Pulmonary cachexia due to COPD Leukocytosis Electrolyte derangement (hyponatremia, hypochloremia) Dehydration Hyperglycemia Nicotine dependence Cannabis use disorder Chronic problem list: Asthma, hypertension, anxiety, tobacco and cannabis abuse INTERVAL HISTORY: 09/20 patient is awake alert and oriented x3 up in the bed not in acute distress. He remains on oxygen support at3 L nasal cannula with sats 93%. Respiratory rate 16. Continue with oxygen support to keep sat greater than 92%. Patient had 6 minute walk test of oxygen and his saturation oxygen 82%. Case management to arrange for home O2. Otherwise this morning with WBC of 13.8 Up from 9.5 yesterday patient is on glucocorticoid which is likely the cause of leukocytosis. We will decrease steroid. Chemistry bicarb is 41 this up from 38. BUN 24 creatinine 0.7. We will hold diuretic for now. Otherwise continue with antibiotic doxy, add Rocephin for GN coverage. Keep PCCU given hypoxia. 09/21 patient is awake alert and oriented sitting up in the bed not in acute distress. He is on 3 L nasal cannula with saturation oxygen of 94%. He denies shortness or breath. Vital signs is unremarkable. Lab is unremarkable except for leukocytosis but likely due to glucocorticoid. Changes to prednisone, daily for five days. Continue antibiotic. From pulmonary standpoint, okay to dc home, instructed to see pulmonology in 2 weeks. He has seen Dr. Beckham as OP before. Script with Kayla. He refused albuterol. Instructed to stop smoking and using substance. REVIEW OF SYSTEMS: 12 point ROS reviewed with patient. Pertinent positives mentioned above. Otherwise negative. PHYSICAL EXAM: GENERAL: alert, weak, awake oriented x 3 HEENT: EOMI, Sclera non icteric, moist mucosa NECK: Supple, no JVD, trachea midline LUNGS: decreased breath sounds HEART: Regular rate and rhythm. Normal S1 and S2, without murmurs ABD: Abdomen soft, nontender. Bowel sounds present EXT: No clubbing cyanosis or edema NEURO: Alert and oriented to person, follows commands Vital Signs (last 8hr) Date Time Temp Pulse Resp B/P (MAP) Pulse Ox O2 Delivery O2 Flow Rate FiO2 09/21/24 12:38 97.9 72 16 147/84 94 Nasal Cannula 3.0 09/21/24 11:16 86 20 09/21/24 11:16 87 20 N/Cannula Low lpm 3.0 32 LABS: Hematology Labs: Test 09/21/24 03:23 Range/Units White Blood Count 14.6 H 4.8-10.8 K/uL Red Blood Count 4.50 4.50-6.20 MIL/uL Hemoglobin 13.9 L 14.0-18.0 g/dL Hematocrit 44.1 42-54 % Mean Corpuscular Volume 98.0 79-99 fL Mean Corpuscular Hemoglobin 30.9 27.0-33.0 pg Mean Corpuscular Hemoglobin Concent 31.5 L 32.0-36.0 g/dL Red Cell Distribution Width 13.5 11.0-15.5 % Platelet Count 182 130-400 K/uL Mean Platelet Volume 10.6 H 7.5-10.5 fL Immature Granulocyte % (Auto) 0.5 0-1 % Neutrophils (%) (Auto) 88.2 H 40.0-77.0 % Lymphocytes (%) (Auto) 4.4 L 21.0-51.0 % Monocytes (%) (Auto) 6.6 3.0-13.0 % Eosinophils (%) (Auto) 0.2 0.0-8.0 % Basophils (%) (Auto) 0.1 0.0-5.0 % Neutrophils # (Auto) 12.9 H 1.8-7.7 K/uL Lymphocytes # (Auto) 0.6 L 1.0-4.8 K/uL Monocytes # (Auto) 1.0 0.1-1.0 K/uL Eosinophils # (Auto) 0.03 0.00-0.70 K/uL Basophils # (Auto) 0.01 0.00-0.20 K/uL Absolute Immature Granulocyte (auto 0.07 0-1 K/uL Nucleated Red Blood Cells 0.0 0.0-0.19 % Chemistry Labs: Test 09/21/24 11:51 09/21/24 03:23 Range/Units Whole Blood Glucose 151 H 70-110 MG/DL Sodium Level 142 136-145 mmol/L Potassium Level 4.7 3.5-5.1 mmol/L Chloride Level 101 101-111 mmol/L Carbon Dioxide Level 43 *H 21-32 mmol/L Blood Urea Nitrogen 34 H 7-18 mg/dL Creatinine 0.6 0.5-1.3 mg/dL Glomerular Filtration Rate Calc 104 >90 mL/min Random Glucose 113 H 70-105 mg/dL Total Calcium 8.7 8.5-10.1 mg/dL Magnesium Level 2.30 1.80-2.40 mg/dL Total Bilirubin 0.3 0.2-1.0 mg/dL Aspartate Amino Transf (AST/SGOT) 13 10-37 U/L Alanine Aminotransferase (ALT/SGPT) 36 # 12-78 U/L Alkaline Phosphatase 47 L 50-136 U/L Total Protein 5.4 L 6.0-8.3 g/dL Albumin 2.8 L 3.5-5.0 g/dL DIAGNOSTICS / RADIOLOGY RESULTS: [ ] PLAN Continue with antibiotic therapy: Doxycycline 100 mg IV BID continue with steroids: Solumedrol 60 mg IV every 8 hours Continue with nebulizer treatments Albuterol 2.5 mg neb every 6 hours NEURO: Minimize central acting medications as possible. Maintain fall precautions, adequate lighting during the day PULMONARY: Supplemental 02 as needed. Maintain aspiration precautions at all times CARDIOVASCULAR: Follow hemodynamics. Vital signs per facility protocol GI & NUTRITION: Continue with nutritional support. Continue stool softeners and laxatives as needed. KIDNEYS & ELECTROLYTES: Strict monitoring of intake, output and overall fluid balance. Avoid nephrotoxic medications to the extent possible. Medications to be dosed according to renal function. Monitor electrolytes and replace as needed ENDOCRINE: Maintain blood glucose between 100-180 at all times. Hypoglycemia protocol in place INFECTIOUS DISEASE: Trend temperature, WBC and procalcitonin level Follow cultures, deescalate antibiotics as soon as possible. Panculture if new onset fever ONCOLOGY/HEMATOLOGY/COAGULATION: Monitor for s/s of bleeding Monitor hemoglobin, coagulation studies as needed SKIN: Pressure ulcer prevention per facility protocol Specialty mattress ORTHO/REHAB: Continue PT/OT Prophylaxis: Continue GI and DVT prophylaxis Code Status: Full Resuscitation Disposition: [facility] Sep 21, 2024 16:27
[2024-09-21] MEDS: DOXYCYCLINE HYCLATE 100 MG TABLET PO SCH (20:25)
[2024-09-22] VITALS (13 sets, daily range): BP systolic 134–159; BP diastolic 87–103; PULSE 84–103; RESP 18–21; TEMP 97.7–98.5; O2SAT 88–98
[2024-09-22] MEDS: acetaMINOPHEN 325 MG TAB PO PRN (00:50)
[2024-09-22 08:49] LABS: ALBUMIN 3.2 g/dL (3.5-5.0); BILIRUBIN,TOTAL 0.4 mg/dL (0.2-1.0); CREATININE 0.5 mg/dL (0.5-1.3); MAGNESIUM 2.3 mg/dL (1.80-2.40); POTASSIUM 4.2 mmol/L (3.5-5.1); TOTAL PROTEIN, SERUM 6.4 g/dL (6.0-8.3)
[2024-09-22] MEDS: predniSONE 20 MG TABLET PO SCH (08:58)
--- NOTE | 2024-09-22 09:29 | NUR ---
CONSULT DR CHANDLER NOTIFY VIA PHONE AND LEFT MESSAGE,
--- NOTE | 2024-09-22 10:52 | PN ---
[facility] PROGRESS NOTE Date Patient Seen: Sep 22, 2024 Time of Visit: 10:51 Supervising Physician: Dr. Braun PROBLEM LIST: Acute hypoxemic respiratory failure, POA Acute exacerbation of COPD with asthma/wheezing, POA Pulmonary vascular congestion with superimposed pneumonitis, POA Pulmonary cachexia due to COPD Leukocytosis Electrolyte derangement (hyponatremia, hypochloremia) Dehydration Hyperglycemia Nicotine dependence Cannabis use disorder Chronic problem list: Asthma, hypertension, anxiety, tobacco and cannabis abuse INTERVAL HISTORY: 09/20 patient is awake alert and oriented x3 up in the bed not in acute distress. He remains on oxygen support at3 L nasal cannula with sats 93%. Respiratory rate 16. Continue with oxygen support to keep sat greater than 92%. Patient had 6 minute walk test of oxygen and his saturation oxygen 82%. Case management to arrange for home O2. Otherwise this morning with WBC of 13.8 Up from 9.5 yesterday patient is on glucocorticoid which is likely the cause of leukocytosis. We will decrease steroid. Chemistry bicarb is 41 this up from 38. BUN 24 creatinine 0.7. We will hold diuretic for now. Otherwise continue with antibiotic doxy, add Rocephin for GN coverage. Keep PCCU given hypoxia. 09/21 patient is awake alert and oriented sitting up in the bed not in acute distress. He is on 3 L nasal cannula with saturation oxygen of 94%. He denies shortness or breath. Vital signs is unremarkable. Lab is unremarkable except for leukocytosis but likely due to glucocorticoid. Changes to prednisone, daily for five days. Continue antibiotic. From pulmonary standpoint, okay to dc home, instructed to see pulmonology in 2 weeks. He has seen Dr. Beckham as OP before. Script with Kayla. He refused albuterol. Instructed to stop smoking and using substance. 09/22 patient is lying in bed not in acute distress he remains on 3 L nasal cannula with oxygen saturation of 98%. Vital signs stable. Lab this morning with sodium 141 potassium 4.2 bicarb is 41 this is down from 43. BUN is 29 creatinine 0.5. Continue with current nebulizer, antibiotic and glucocorticoid. From pulmonary standpoint patient is okay to discharge/ transfer per hospitalist. Follow up with Pulmonary Service in two weeks post discharge. REVIEW OF SYSTEMS: 12 point ROS reviewed with patient. Pertinent positives mentioned above. Otherwise negative. PHYSICAL EXAM: GENERAL: alert, weak, awake oriented x 3 HEENT: EOMI, Sclera non icteric, moist mucosa NECK: Supple, no JVD, trachea midline LUNGS: decreased breath sounds, no wheezing now. HEART: Regular rate and rhythm. Normal S1 and S2, without murmurs ABD: Abdomen soft, nontender. Bowel sounds present EXT: No clubbing cyanosis or edema NEURO: Alert and oriented to person, follows commands Vital Signs (last 8hr) Date Time Temp Pulse Resp B/P (MAP) Pulse Ox O2 Delivery O2 Flow Rate FiO2 09/22/24 10:48 91 20 21 88 20 32 09/22/24 07:00 98.2 93 21 150/90 98 Room Air 09/22/24 06:29 93 18 09/22/24 06:29 93 18 N/Cannula Low lpm 3.0 32 09/22/24 03:09 97.7 86 18 159/93 97 Nasal Cannula LABS: Hematology Labs: Test 09/21/24 03:23 Range/Units White Blood Count 14.6 H 4.8-10.8 K/uL Red Blood Count 4.50 4.50-6.20 MIL/uL Hemoglobin 13.9 L 14.0-18.0 g/dL Hematocrit 44.1 42-54 % Mean Corpuscular Volume 98.0 79-99 fL Mean Corpuscular Hemoglobin 30.9 27.0-33.0 pg Mean Corpuscular Hemoglobin Concent 31.5 L 32.0-36.0 g/dL Red Cell Distribution Width 13.5 11.0-15.5 % Platelet Count 182 130-400 K/uL Mean Platelet Volume 10.6 H 7.5-10.5 fL Immature Granulocyte % (Auto) 0.5 0-1 % Neutrophils (%) (Auto) 88.2 H 40.0-77.0 % Lymphocytes (%) (Auto) 4.4 L 21.0-51.0 % Monocytes (%) (Auto) 6.6 3.0-13.0 % Eosinophils (%) (Auto) 0.2 0.0-8.0 % Basophils (%) (Auto) 0.1 0.0-5.0 % Neutrophils # (Auto) 12.9 H 1.8-7.7 K/uL Lymphocytes # (Auto) 0.6 L 1.0-4.8 K/uL Monocytes # (Auto) 1.0 0.1-1.0 K/uL Eosinophils # (Auto) 0.03 0.00-0.70 K/uL Basophils # (Auto) 0.01 0.00-0.20 K/uL Absolute Immature Granulocyte (auto 0.07 0-1 K/uL Nucleated Red Blood Cells 0.0 0.0-0.19 % Chemistry Labs: Test 09/22/24 08:25 09/22/24 05:06 Range/Units Sodium Level 141 136-145 mmol/L Potassium Level 4.2 3.5-5.1 mmol/L Chloride Level 99 L 101-111 mmol/L Carbon Dioxide Level 41 *H 21-32 mmol/L Blood Urea Nitrogen 29 H 7-18 mg/dL Creatinine 0.5 0.5-1.3 mg/dL Glomerular Filtration Rate Calc 110 >90 mL/min Random Glucose 117 H 70-105 mg/dL Total Calcium 8.7 8.5-10.1 mg/dL Magnesium Level 2.30 1.80-2.40 mg/dL Total Bilirubin 0.4 0.2-1.0 mg/dL Aspartate Amino Transf (AST/SGOT) 15 10-37 U/L Alanine Aminotransferase (ALT/SGPT) 35 12-78 U/L Alkaline Phosphatase 57 50-136 U/L Total Protein 6.4 6.0-8.3 g/dL Albumin 3.2 L 3.5-5.0 g/dL Whole Blood Glucose 111 H 70-110 MG/DL DIAGNOSTICS / RADIOLOGY RESULTS: [ ] PLAN Continue with antibiotic therapy: Doxycycline 100 mg IV BID continue with steroids: Solumedrol 60 mg IV every 8 hours Continue with nebulizer treatments Albuterol 2.5 mg neb every 6 hours NEURO: Minimize central acting medications as possible. Maintain fall precautions, adequate lighting during the day PULMONARY: Supplemental 02 as needed. Maintain aspiration precautions at all times CARDIOVASCULAR: Follow hemodynamics. Vital signs per facility protocol GI & NUTRITION: Continue with nutritional support. Continue stool softeners and laxatives as needed. KIDNEYS & ELECTROLYTES: Strict monitoring of intake, output and overall fluid balance. Avoid nephrotoxic medications to the extent possible. Medications to be dosed according to renal function. Monitor electrolytes and replace as needed ENDOCRINE: Maintain blood glucose between 100-180 at all times. Hypoglycemia protocol in place INFECTIOUS DISEASE: Trend temperature, WBC and procalcitonin level Follow cultures, deescalate antibiotics as soon as possible. Panculture if new onset fever ONCOLOGY/HEMATOLOGY/COAGULATION: Monitor for s/s of bleeding Monitor hemoglobin, coagulation studies as needed SKIN: Pressure ulcer prevention per facility protocol Specialty mattress ORTHO/REHAB: Continue PT/OT Prophylaxis: Continue GI and DVT prophylaxis Code Status: Full Resuscitation Disposition: [facility] Sep 22, 2024 10:52
--- NOTE | 2024-09-22 11:04 | NUR ---
REPORT GIVEN TO NURSE ON 325.
--- NOTE | 2024-09-22 13:26 | NUR ---
CM NOTE CM spoke to patient regarding d/c planning. NATALIIA and Dr Pfeiffer had discussed rehab placement vs LTAC earlier this AM. Patient had declined rehab and stated he had been to [facility] in the past and does not want to return. Asked CM to f/u this afternoon with decision. CM then offered rehab vs LTAC options again. CM explained that patient is ready to discharge to next level of care or home. Patient then stated, "Now I am suicidal". CM advised patient that CM will be notifying MD of current conversation. CM spoke to Dr. Pfeiffer and updated. Received orders for 1:1 sitter for suicide ideation. Also received orders for transfer to [facility]. No psych coverage here in this hospital. CM updated primary nurse and fish house worker. Mele Dunn LANDSCAPE ACCOUNT MANAGER and CM director also updated. Addendum: 09/22/24 at 1332 by ESPERANZA GRACIA Amended: Links added.
--- NOTE | 2024-09-22 14:53 | DS ---
Discharge Summary Hospital Course Summary: DATE OF ADMISSION:[09/17/2024] DATE OF DISCHARGE:[09/22/2024] DISPOSITION:[Transferred to [facility] for psych eval. Patient has suicidal ideation] CONDITION:[Medically cleared] CONSULTANTS:[Red Hat Engineer, psych] FOLLOW UP APPOINTMENTS:[PCP two days, wire frame maker two days, psych is appropriate] PROCEDURES:[None] IMAGING: report attached to summary MICROBIOLOGY: report attached to summary ACTIVITY:[One-person assist/standby] HOME MEDICATIONS: see med recc NEW MEDICATIONS:[See med rec] EMERGENCY INSTRUCTIONS: The patient was instructed to present to the nearest Emergency departmentr or call 911 once their symptoms will return or worsen Line Person(s): This is a 69-year-old male was admitted on September 17, 2024 with chief complaints of worsening shortness a breath over two days. ER workup was consistent with mild bilateral pulmonary infiltrates mild pulmonary vascular congestion with possible superimposed pneumonitis. Patient was seen and examined with Dr. Castillo The patient appear resp distress upon to complete a full sentence without gasping for air. He just received a duoneb treatment. RR > 28 anxious. WE will transfer to PCCU for closer observation given to high risk for decompensate airway. Patient was seen by nurse practitioner and physician during rounding comfortably lying in bed. Patient is on 2 L nasal cannula satting 96% at this moment. 6 minute was performed patient did not pass the 0 two we will be delivered to home as per disability case manager. Patient was cleared to be discharged home but unfortun ately he told the nurse yesterday that when he goes home he will diet. Today again the patient repeated to a embedded case manager and rounding physician that he is suicidal. At this moment we are recommending one-to-one and suicidal ideation precautions. We will have a psych at the hospital at this moment so we will discharge patient to [facility] for further evaluation of psych. Once discharge patient to follow up with PCP in 2 to 3 days and wire frame maker due to three days as well. Procedure(s): REVIEW OF SYSTEMS 12-point ROS reviewed with patient. All pertinent positives mentioned above. Otherwise negative, nonpertinent, and noncontributory. PHYSICAL EXAM GENERAL APPEARANCE: The patient is awake, alert, and oriented x4. Cachectic. NEUROLOGICAL: Cranial nerves II-XII grossly intact. Motor is 5/5 in bilateral upper and lower extremities proximal to distal. No sensory deficits. HEENT: Face is symmetric. Pupils are equal and reactive. Extraocular movements are intact. NECK: Supple. No JVD. No thyromegaly. No submental, submandibular, pre-/ postauricular, occipital or supraclavicular lymphadenopathy. CHEST: Normal chest expansion. No Telemetry. LUNGS: + wheezing. Tachypneic, retractions, abdominal breathing. CARDIOVASCULAR: Regular. S1 and S2 normal. No appreciable rubs, murmurs or gallops. ABDOMEN: Soft, nontender, and nondistended. There is no rebound, voluntary guarding, or rigidity. : Deferred. No Jasmine. EXTREMITIES: Non-edematous and not cyanotic. No clubbing. Good capillary refill. SKIN: No skin breakdown. Assessment/Plan: ASSESSMENT: Acute hypoxemic respiratory failure, POA possible Suicidal ideations 09/22/2024 BUCIO with minimal exertion POA Acute exacerbation of COPD with asthma/wheezing, POA Pulmonary vascular congestion with superimposed pneumonitis, POA Pulmonary cachexia due to COPD Leukocytosis Electrolyte derangement (hyponatremia, hypochloremia) Dehydration Hyperglycemia Nicotine dependence Cannabis use disorder Medical noncompliance Chronic problem list: Asthma, hypertension, anxiety, tobacco and cannabis abuse Home Medications: Reported Medications Albuterol Sulfate (Proair Digihaler) 90 Mcg Aer.pw.bas, 1 AER IH Q6HPRN PRN for SHORTNESS OF BREATH 09/17/24 Albuterol Sulfate (Albuterol Sulfate) 1.25 Mg/3 Ml Vial.neb, 3 ML NEB Q6HPRN PRN for asthma 09/17/24 Fluticasone Propion/Salmeterol (Fluticasone-Salmeterol 100-50) 100 Mcg-50 Mcg/Dose Blst.w.dev, 1 CART PO BID 09/17/24 Fluticasone Propionate (Flonase Nasal [place]) 50 Mcg/Actuation [place], 1 SPRY EN BID 09/17/24 Time spent arranging discharge: 31-60 minutes ATTESTATION BY PHYSICIAN I have seen and examined the patient. I reviewed the documentation, medical decision making, and treatment plan as noted by the mid-level provider above. I agree with the findings and plan of care. LAY DANG MD, KATARZYNA B [facility] Sep 22, 2024 14:53
--- NOTE | 2024-09-22 18:23 | NUR ---
note patient medically clear as per attending, patient pending to be seen by tropical behavioral, tropical notified, spoke to wolfgang neumann
--- NOTE | 2024-09-22 20:00 | NUR ---
tropical screening per screened done at bedside by tropical will follow up tomorrow here at hospital , per screener attempted to call patients friend moe unable to get a hold of her to get more information regarding patient
[2024-09-23] VITALS (10 sets, daily range): BP systolic 120–144; BP diastolic 67–83; PULSE 75–98; RESP 17–20; TEMP 97.6–98.4; O2SAT 95–97
[2024-09-23 05:43] LABS: BASOPHILS # (AUTO) 0.02 K/uL (0.00-0.20); BASOPHILS % (AUTO) 0.2 % (0.0-5.0); EOSINOPHILS # (AUTO) 0.09 K/uL (0.00-0.70); EOSINOPHILS % (AUTO) 0.8 % (0.0-8.0); HEMATOCRIT 49.6 % (42-54); IMMATURE GRANULOCYTE ABSOLUTE 0.06 K/uL (0-1); LYMPHOCYTES # (AUTO) 1.1 K/uL (1.0-4.8); LYMPHOCYTES % (AUTO) 9.5 % (21.0-51.0); MEAN CORPUSCULAR HEMOGLOBIN 31.1 pg (27.0-33.0); MEAN CORPUSCULAR HGB CONC 32.1 g/dL (32.0-36.0); MEAN CORPUSCULAR VOLUME 96.9 fL (79-99); MONOCYTES # (AUTO) 0.8 K/uL (0.1-1.0); MONOCYTES % (AUTO) 6.9 % (3.0-13.0); NEUTROPHILS # (AUTO) 9.7 K/uL (1.8-7.7); NEUTROPHILS % (AUTO) 82.1 % (40.0-77.0); PLATELET COUNT (AUTO) 178 K/uL (130-400); RED BLOOD CELL COUNT(AUTO) 5.12 MIL/uL (4.50-6.20); RED CELL DISTRIBUTION WIDTH 13.2 % (11.0-15.5); WHITE BLOOD COUNT (AUTO) 11.8 K/uL (4.8-10.8)
[2024-09-23 06:12] LABS: BILIRUBIN,TOTAL 0.6 mg/dL (0.2-1.0); CREATININE 0.6 mg/dL (0.5-1.3); MAGNESIUM 2.1 mg/dL (1.80-2.40); TOTAL PROTEIN, SERUM 6.1 g/dL (6.0-8.3)
[2024-09-23] MEDS: ALPRAZolam 0.5 MG TABLET PO PRN (08:50)
--- NOTE | 2024-09-23 10:40 | PN ---
[facility] PROGRESS NOTE Date of Service: Sep 23, 2024 Time of Service: 10:[address] Pfeiffer SUBJECTIVE: [ ] This is a 69-year-old male was admitted on September 17, 2024 with chief complaints of worsening shortness a breath over two days. ER workup was consistent with mild bilateral pulmonary infiltrates mild pulmonary vascular congestion with possible superimposed pneumonitis. Patient was seen and examined with Dr. Castillo The patient appear resp distress upon to complete a full sentence without gasping for air. He just received a duoneb treatment. RR > 28 anxious. WE will transfer to PCCU for closer observation given to high risk for decompensate airway. 09/20/24 patient was seen by nurse practitioner and physician during rounding in room 221 comfortably lying in bed. Patient at this moment is on 2 L nasal cannula satting 94%. Patient is refusing BiPAP as ordered by physician specialist. Patient is also refusing physical therapy for evaluation. Nurse practitioner explained to the patient importance of BiPAP and physical therapy evaluation. Patient agree for next physical therapy evaluation but so disagrees with BiPAP. Prior discharge we will order 6 minute walk. Continue doxycycline 100 mg IV b.i.d. and steroid as ordered by physician specialist we will try to wean off once appropriate. A.m. labs. 09/21 Patient was seen by nurse practitioner and physician during rounding see 11/10/2020 lying in the bed. Patient is on 2 L nasal cannula satting 96% at this moment. 6 minute walk was performed and patient did not pass. Case management is working on delivery of home oxygen to patient's home. Physical therapy also evaluated the patient and is recommending home with the home health, two wheeled walker and chair for shower. Home health to be set up outpatient with the PCP and walker we will be delivered to patient's home as well. Shower chair will be delivered outpatient once insurance approved. Patient continues to refuse BiPAP at night refuses to ambulate. Patient was cleared by physician specialist to discharged home on prednisolone 40 mg daily x5 days. Follow-up with PCP in two days. Follow up with physician specialist in two days. 09/22 This is a 69-year-old male was admitted on September 17, 2024 with chief complaints of worsening shortness a breath over two days. ER workup was consistent with mild bilateral pulmonary infiltrates mild pulmonary vascular congestion with possible superimposed pneumonitis. Patient was seen and examined with Dr. Castillo The patient appear resp distress upon to complete a full sentence without gasping for air. He just received a duoneb treatment. RR > 28 anxious. WE will transfer to PCCU for closer observation given to high risk for decompensate airway. Patient was seen by nurse practitioner and physician during rounding comfortably lying in bed. Patient is on 2 L nasal cannula satting 96% at this moment. 6 minute was performed patient did not pass the 0 two we will be delivered to home as per housing case manager. Patient was cleared to be discharged home but unfortunately he told the nurse yesterday that when he goes home he will diet. Today again the patient repeated to a case management assistant and rounding physician that he is suicidal. At this moment we are recommending one-to-one and suicidal ideation precautions. We will have a psych at the hospital at this moment so we will discharge patient to [facility] for further evaluation of psych. Once discharge patient to follow up with PCP in 2 to 3 days and physician specialist due to three days as well. 09/23 patient was seen by nurse practitioner and physician during rounding in room 323 comfortably lying in bed. Patient continues to be on 2 L nasal cannula satting 95%. Patient is pending evaluation of the tropical. Once cleared patient will be discharged home if not patient will be either [facility] [place] or to psych unit as approved by the insurance. Patient denies any chest pain, nausea, vomiting or any other discomfort other than shortness of breaths. REVIEW OF SYSTEMS 12-point ROS reviewed with patient. All pertinent positives mentioned above. Otherwise negative, nonpertinent, and noncontributory. PHYSICAL EXAM GENERAL APPEARANCE: The patient is awake, alert, and oriented x4. Cachectic. NEUROLOGICAL: Cranial nerves II-XII grossly intact. Motor is 5/5 in bilateral upper and lower extremities proximal to distal. No sensory deficits. HEENT: Face is symmetric. Pupils are equal and reactive. Extraocular movements are intact. NECK: Supple. No JVD. No thyromegaly. No submental, submandibular, pre- /postauricular, occipital or supraclavicular lymphadenopathy. CHEST: Normal chest expansion. No Telemetry. LUNGS: + wheezing. Tachypneic, retractions, abdominal breathing. CARDIOVASCULAR: Regular. S1 and S2 normal. No appreciable rubs, murmurs or gallops. ABDOMEN: Soft, nontender, and nondistended. There is no rebound, voluntary guarding, or rigidity. : Deferred. No Jasmine. EXTREMITIES: Non-edematous and not cyanotic. No clubbing. Good capillary refill. SKIN: No skin breakdown. Vital Signs (last 8hr) Date Time Temp Pulse Resp B/P (MAP) Pulse Ox O2 Delivery O2 Flow Rate FiO2 09/23/24 08:00 98.2 97 20 144/83 96 Nasal Cannula 2.0 09/23/24 07:21 92 18 09/23/24 07:20 92 18 N/Cannula Low lpm 2.0 28 09/23/24 03:53 98.1 75 17 125/67 96 Nasal Cannula 2.0 LABS: Laboratory: Test 09/23/24 06:44 09/23/24 05:05 09/22/24 16:36 Range/Units Whole Blood Glucose 112 H 70-110 MG/DL Bedside Glucose Comment Notified Nurse White Blood Count 11.8 H 4.8-10.8 K/uL Red Blood Count 5.12 4.50-6.20 MIL/uL Hemoglobin 15.9 14.0-18.0 g/dL Hematocrit 49.6 42-54 % Mean Corpuscular Volume 96.9 79-99 fL Mean Corpuscular Hemoglobin 31.1 27.0-33.0 pg Mean Corpuscular Hemoglobin Concent 32.1 32.0-36.0 g/dL Red Cell Distribution Width 13.2 11.0-15.5 % Platelet Count 178 130-400 K/uL Mean Platelet Volume 11.0 H 7.5-10.5 fL Immature Granulocyte % (Auto) 0.5 0-1 % Neutrophils (%) (Auto) 82.1 H 40.0-77.0 % Lymphocytes (%) (Auto) 9.5 L 21.0-51.0 % Monocytes (%) (Auto) 6.9 3.0-13.0 % Eosinophils (%) (Auto) 0.8 0.0-8.0 % Basophils (%) (Auto) 0.2 0.0-5.0 % Neutrophils # (Auto) 9.7 H 1.8-7.7 K/uL Lymphocytes # (Auto) 1.1 1.0-4.8 K/uL Monocytes # (Auto) 0.8 0.1-1.0 K/uL Eosinophils # (Auto) 0.09 0.00-0.70 K/uL Basophils # (Auto) 0.02 0.00-0.20 K/uL Absolute Immature Granulocyte (auto 0.06 0-1 K/uL Nucleated Red Blood Cells 0.0 0.0-0.19 % Sodium Level 141 136-145 mmol/L Potassium Level 4.0 3.5-5.1 mmol/L Chloride Level 99 L 101-111 mmol/L Carbon Dioxide Level 41 *H 21-32 mmol/L Blood Urea Nitrogen 28 H 7-18 mg/dL Creatinine 0.6 0.5-1.3 mg/dL Glomerular Filtration Rate Calc 104 >90 mL/min Random Glucose 174 H 70-105 mg/dL Total Calcium 8.7 8.5-10.1 mg/dL Magnesium Level 2.10 1.80-2.40 mg/dL Total Bilirubin 0.6 # 0.2-1.0 mg/dL Aspartate Amino Transf (AST/SGOT) 13 10-37 U/L Alanine Aminotransferase (ALT/SGPT) 31 12-78 U/L Alkaline Phosphatase 51 50-136 U/L Total Protein 6.1 6.0-8.3 g/dL Albumin 3.0 L 3.5-5.0 g/dL Serum Alcohol < 3 0-10 mg/dL Current Medications Medications (Trade) Dose Ordered Sig/Bethany Route PRN Reason Start Time Stop Time Status Last Admin Dose Admin Acetaminophen (TYLenol 325MG TAB) 650 mg Q6H PRN PO FEVER/MILD PAIN LEVEL 1-3 09/17/24 01:00 10/17/24 00:59 09/22/24 00:50 650 MG Acetaminophen (TYLenol 650MG SUPPOSITORY) 650 mg Q6H PRN RC FEVER / MILD PAIN 1-3 IF NPO 09/17/24 01:00 10/17/24 00:59 Albuterol Sulfate (Proventil 0.083% 2.5mg/3ml) 2.5 mg [id number] IH 09/17/24 06:00 09/21/24 09:32 DC 09/21/24 06:27 2.5 MG Alprazolam (XANax 0.5MG) 0.5 mg Q8H5 PRN PO ANXIETY/AGITATION 09/23/24 09:00 10/23/24 08:59 09/23/24 08:50 0.5 MG Ceftriaxone Sodium (Rocephin 2gm Inj) 2 gm Q24H IVPB 09/20/24 17:00 09/27/24 16:59 09/22/24 18:13 2 GM Docusate Sodium (COLace 100MG CAP) 100 mg BID PRN PO CONSTIPATION 09/17/24 01:00 10/17/24 00:59 Doxycycline Hyclate (Doxycycline 100mg+NS 250ml) 100 mg BID IV 09/17/24 09:00 09/21/24 11:38 DC 09/21/24 08:42 100 MG Doxycycline Hyclate (Doxycycline Hyclate) 100 mg BID PO 09/21/24 21:00 10/01/24 20:59 09/23/24 08:24 100 MG Enoxaparin Sodium (Lovenox) 40 mg DAILY SQ 09/17/24 09:00 10/17/24 08:59 09/23/24 08:27 40 MG Famotidine (Pepcid 20mg Tab) 20 mg BID PO 09/17/24 09:00 10/17/24 08:59 09/23/24 05:22 20 MG Fluticasone Propionate (FLOnase 50 mcg/ spray 16g bottle) 1 SPRAY DAILY EN 09/19/24 09:00 10/17/24 16:29 09/23/24 08:29 1 SPRAYS Fluticasone Propionate (FLOnase 50 mcg/ spray 16g bottle) 1 sprays DAILY EN 09/17/24 16:30 09/19/24 07:11 DC 09/18/24 09:29 1 SPRAYS Guaifenesin (RobiTUSSin SUGAR-FREE 100 MG/ 5 ML UDCUP) 600 mg Q6H PRN PO COUGH 09/17/24 01:00 10/17/24 00:59 Hydralazine HCl (APRESOLine 20MG INJ) 10 mg Q6H PRN IV SBP GREATER THAN 180 09/17/24 01:00 10/17/24 00:59 Insulin Human Regular (humuLIN R 100 UNIT/ML 3ML) INSULIN SLIDING SCAL... ACHS SQ 09/17/24 07:30 10/17/24 07:29 09/17/24 17:02 4 UNIT Ipratropium [place] (AtrovENT UD) 0.5 mg K2QANTS IH 09/17/24 06:00 10/17/24 05:59 09/23/24 07:19 0.5 MG Lactulose (Constulose 20gm/ 30ml Udcup) 20 gm Q6H PRN PO CONSTIPATION 09/17/24 01:00 10/17/24 00:59 Methylprednisolone Sodium Succinate (Solu-medROL 40MG) 40 mg Q8H IVP 09/20/24 16:00 09/21/24 11:37 DC 09/21/24 08:42 40 MG Methylprednisolone Sodium Succinate (Solu-medROL 40MG) 60 mg Q8H IVP 09/19/24 08:00 09/20/24 12:15 DC 09/20/24 09:36 60 MG Methylprednisolone Sodium Succinate (Solu-medROL 125MG) 60 mg Q8H IVP 09/17/24 08:00 09/19/24 07:12 DC 09/19/24 00:03 60 MG Montelukast Sodium (SinguLAIR) 10 mg HS PO 09/17/24 04:10 10/17/24 04:09 09/22/24 20:38 10 MG Nicotine (Nicoderm) 14 mg DAILY TD 09/17/24 04:10 10/17/24 04:09 09/23/24 08:25 14 MG Ondansetron HCl (zoFRAN 4MG INJ) 4 mg Q6H PRN IVP NAUSEA/VOMITING 09/17/24 01:00 10/17/24 00:59 09/19/24 23:33 4 MG Prednisone (deltaSONE/ oraSONE 20MG TAB) 40 mg DAILY PO 09/22/24 09:00 09/26/24 09:01 09/23/24 08:24 40 MG Temazepam (restORIL 15 MG CAP) 15 mg HS PRN PO INSOMNIA/SLEEP 09/17/24 01:00 10/17/24 00:59 DIAGNOSTICS / RADIOLOGY: [ ] ASSESSMENT: Acute hypoxemic respiratory failure, POA Suicidal ideations 09/22/2024 BUCIO with minimal exertion POA Acute exacerbation of COPD with asthma/wheezing, POA Pulmonary vascular congestion with superimposed pneumonitis, POA Pulmonary cachexia due to COPD Leukocytosis Electrolyte derangement (hyponatremia, hypochloremia) Dehydration Hyperglycemia Nicotine dependence Cannabis use disorder Medical noncompliance Chronic problem list: Asthma, hypertension, anxiety, tobacco and cannabis abuse PLAN Admit to: Medical-surgical floor Consults: Hot Strip Finisher, tropical/psych Pending evaluation by tropical further recommendations. NEURO: Minimize central acting medications as possible. Fall Precautions. Well lighted room through the day and minimize interruptions through the night to prevent acute delirium. PULMONARY: Supplemental 02 as needed BiPAP as necessary, for respiratory distress Titrate Fio2 to keep Spo2 > or = 90% DuoNebs and CPT as needed IS hourly while awake for pulmonary hygiene Out of bed to chair as tolerated VAP Bundle Maintain aspiration precautions at all times CARDIOVASCULAR: Follow hemodynamics. Vital signs per facility protocol GI & NUTRITION: Continue nutritional support Aspirations precautions Prokinetic agents and laxatives as needed KIDNEYS & ELECTROLYTES: Strict monitoring of intake and output Daily weights Avoid nephrotoxic agents Monitor electrolytes and replace as needed Goal urine output of 30mL/hr or 0.5mL/kg/hr Medications to be dosed according to renal function. Avoid contrast if possible ENDOCRINE: Maintain blood glucose between 100-180 at all times. Insulin sliding scale for blood glucose management Hypoglycemia and hyperglycemia protocol in place INFECTIOUS DISEASE: Trend temperature, WBC and procalcitonin level Follow cultures, deescalate antibiotics as soon as possible. Panculture if new onset fever HEMATOLOGY & COAGULATION: Monitor H&H. Keep Hgb > 7 Transfuse 1 unit of PRBC for Hgb < 7 Transfuse 1 pack of platelets of platelets < 20, 000 Watch for any signs and symptoms of bleeding SKIN: Pressure ulcer prevention per facility protocol Specialty mattress as needed Treatment plan discussed with patient and family at the bedside Medications to be reconciled once obtained by patient and/or family and available to be reconciled in computer p.r.n. medication for pain nausea and vomiting Questions were answered We will continue to monitor the patient closely Is Consultant for disposition Rehab: PT/OT GI: PPI DVT: SCD's Code Status: Full Resuscitation Disposition: TBD Prognosis: Guarded ATTESTATION BY PHYSICIAN I have seen and examined the patient. I reviewed the documentation, medical decision making, and treatment plan as noted by the mid-level provider above. I agree with the findings and plan of care. LAY PFEIFFER MD, [facility] Sep 23, 2024 10:40
--- NOTE | 2024-09-23 16:42 | PN ---
[facility] PROGRESS NOTE Date Patient Seen: Sep 23, 2024 Time of Visit: 16:39 Supervising Physician: URBAN GILLESPIE MD PROBLEM LIST: Acute hypoxemic respiratory failure, POA Acute exacerbation of COPD with asthma/wheezing, POA Pulmonary vascular congestion with superimposed pneumonitis, POA Pulmonary cachexia due to COPD Leukocytosis Electrolyte derangement (hyponatremia, hypochloremia) Dehydration Hyperglycemia Nicotine dependence Cannabis use disorder Chronic problem list: Asthma, hypertension, anxiety, tobacco and cannabis abuse INTERVAL HISTORY: 09/22 patient is lying in bed not in acute distress he remains on 3 L nasal cannula with oxygen saturation of 98%. Vital signs stable. Lab this morning with sodium 141 potassium 4.2 bicarb is 41 this is down from 43. BUN is 29 creatinine 0.5. Continue with current nebulizer, antibiotic and glucocorticoid. From pulmonary standpoint patient is okay to discharge/ transfer per hospitalist. Follow up with Pulmonary Service in two weeks post discharge. 09/23 Patient is seen and evaluated by me at bedside. I have reviewed his clinical chart, events of the last 24 hours noted and discussed with nurse in charge of patient currently, patient remains on 3 liters O2 No distress, saturating 97% occasional dry cough, no phlegm, no hemoptysis appetite is good, no fevers, no constipation pending discharge once home O2 approved and ready REVIEW OF SYSTEMS: 12 point ROS reviewed with patient. Pertinent positives mentioned above. Otherwise negative. PHYSICAL EXAM: GENERAL: alert, weak, awake oriented x 3 HEENT: EOMI, Sclera non icteric, moist mucosa NECK: Supple, no JVD, trachea midline LUNGS: decreased breath sounds, no crackles, no rhonchi, no wheezing HEART: Regular rate and rhythm. Normal S1 and S2, without murmurs ABD: Abdomen soft, nontender. Bowel sounds present EXT: No clubbing cyanosis or edema NEURO: Alert and oriented to person, follows commands Vital Signs (last 8hr) Date Time Temp Pulse Resp B/P (MAP) Pulse Ox O2 Delivery O2 Flow Rate FiO2 09/23/24 12:00 97.9 94 20 120/78 96 Nasal Cannula 2.0 09/23/24 11:43 98 18 N/Cannula Low lpm 2.0 28 09/23/24 11:43 98 18 LABS: Hematology Labs: Test 09/23/24 05:05 Range/Units White Blood Count 11.8 H 4.8-10.8 K/uL Red Blood Count 5.12 4.50-6.20 MIL/uL Hemoglobin 15.9 14.0-18.0 g/dL Hematocrit 49.6 42-54 % Mean Corpuscular Volume 96.9 79-99 fL Mean Corpuscular Hemoglobin 31.1 27.0-33.0 pg Mean Corpuscular Hemoglobin Concent 32.1 32.0-36.0 g/dL Red Cell Distribution Width 13.2 11.0-15.5 % Platelet Count 178 130-400 K/uL Mean Platelet Volume 11.0 H 7.5-10.5 fL Immature Granulocyte % (Auto) 0.5 0-1 % Neutrophils (%) (Auto) 82.1 H 40.0-77.0 % Lymphocytes (%) (Auto) 9.5 L 21.0-51.0 % Monocytes (%) (Auto) 6.9 3.0-13.0 % Eosinophils (%) (Auto) 0.8 0.0-8.0 % Basophils (%) (Auto) 0.2 0.0-5.0 % Neutrophils # (Auto) 9.7 H 1.8-7.7 K/uL Lymphocytes # (Auto) 1.1 1.0-4.8 K/uL Monocytes # (Auto) 0.8 0.1-1.0 K/uL Eosinophils # (Auto) 0.09 0.00-0.70 K/uL Basophils # (Auto) 0.02 0.00-0.20 K/uL Absolute Immature Granulocyte (auto 0.06 0-1 K/uL Nucleated Red Blood Cells 0.0 0.0-0.19 % Chemistry Labs: Test 09/23/24 11:24 09/23/24 06:44 09/23/24 05:05 Range/Units Whole Blood Glucose 133 H 70-110 MG/DL Bedside Glucose Comment Notified Nurse Sodium Level 141 136-145 mmol/L Potassium Level 4.0 3.5-5.1 mmol/L Chloride Level 99 L 101-111 mmol/L Carbon Dioxide Level 41 *H 21-32 mmol/L Blood Urea Nitrogen 28 H 7-18 mg/dL Creatinine 0.6 0.5-1.3 mg/dL Glomerular Filtration Rate Calc 104 >90 mL/min Random Glucose 174 H 70-105 mg/dL Total Calcium 8.7 8.5-10.1 mg/dL Magnesium Level 2.10 1.80-2.40 mg/dL Total Bilirubin 0.6 # 0.2-1.0 mg/dL Aspartate Amino Transf (AST/SGOT) 13 10-37 U/L Alanine Aminotransferase (ALT/SGPT) 31 12-78 U/L Alkaline Phosphatase 51 50-136 U/L Total Protein 6.1 6.0-8.3 g/dL Albumin 3.0 L 3.5-5.0 g/dL DIAGNOSTICS / RADIOLOGY RESULTS: [ chest x-ray reviewed ] PLAN Taper down steroids hemodynamically stable from pulmonary standpoint for discharge on home O2 NEURO: Minimize central acting medications as possible. Maintain fall precautions, adequate lighting during the day PULMONARY: Supplemental 02 as needed. Maintain aspiration precautions at all times CARDIOVASCULAR: Follow hemodynamics. Vital signs per facility protocol GI & NUTRITION: Continue with nutritional support. Continue stool softeners and laxatives as needed. KIDNEYS & ELECTROLYTES: Strict monitoring of intake, output and overall fluid balance. Avoid nephrotoxic medications to the extent possible. Medications to be dosed according to renal function. Monitor electrolytes and replace as needed ENDOCRINE: Maintain blood glucose between 100-180 at all times. Hypoglycemia protocol in place INFECTIOUS DISEASE: Trend temperature, WBC and procalcitonin level Follow cultures, deescalate antibiotics as soon as possible. Panculture if new onset fever ONCOLOGY/HEMATOLOGY/COAGULATION: Monitor for s/s of bleeding Monitor hemoglobin, coagulation studies as needed SKIN: Pressure ulcer prevention per facility protocol Specialty mattress ORTHO/REHAB: Continue PT/OT Prophylaxis: Continue GI and DVT prophylaxis Code Status: Full Resuscitation Disposition: TBD as per PCP ATTESTATION BY PHYSICIAN The note was scribed by Brandyn Chappell, c lead medical technologist on my behalf and I attest to the accuracy of the clinical note Urban Gillespie MD I personally scribed for URBAN GILLESPIE MD ([email or web address]) on 09/23/24 at 16:42. Electronically submitted by Brandyn Chappell ([email or web address]). URBAN GILLESPIE MD Sep 23, 2024 16:42
--- NOTE | 2024-09-23 17:00 | NUR ---
DISCHARGE PIV DC'D PT. AWARE OF FOLLOW UP WITH DR. ALLISON ON 09/27 AT 2PM PT. HAS AN APPOINTMENT WITH MARAH JUSTIN ON 10/03/24 AT 1PM PT. AWARE OF PRESCRIPTIONS BEING SENT TO PHARMACY ALL QUESTIONS ANSWERED PRIOR TO DISCHARGE
--- NOTE | 2024-09-23 18:16 | NUR ---
1815 PT PICKED UP IN THE LOBBY BY FAMILY FRIEND KM WHILE WAITING ON MANAGER SYSTEM TO ORDER AN UBER
--- NOTE | 2024-09-23 19:36 | NUR ---
CM NOTE/APRI[facility] CM spoke to Ricardo with [employer]. Notified that patient discharged home. States he will notify tow car driver to deliver remaining DME tomorrow.
== END 2024-09-23 18:15 | disposition home or self-care (01) | DRG 205 ==
LOC: EDH 23:11 → EDHIP 09-17 00:28 → 3AH 09-17 02:18 → 2DH 09-19 13:40 → 3DH 09-22 11:20
PROVIDERS: ADMIT Internal Medicine; ATTEND Internal Medicine
DX: J98.4 Other disorders of lung (principal); J96.01 Acute respiratory failure with hypoxia; J44.1 Chronic obstructive pulmonary disease with (acute) exacerbation; R64 Cachexia; R45.851 Suicidal ideations; Z68.1 Body mass index [BMI] 19.9 or less, adult; J45.901 Unspecified asthma with (acute) exacerbation; Z20.822 Contact with and (suspected) exposure to COVID-19; I10 Essential (primary) hypertension; E86.0 Dehydration; E87.8 Other disorders of electrolyte and fluid balance, not elsewhere classified; R73.9 Hyperglycemia, unspecified; D72.829 Elevated white blood cell count, unspecified; K59.00 Constipation, unspecified; F41.9 Anxiety disorder, unspecified; F12.10 Cannabis abuse, uncomplicated; F17.210 Nicotine dependence, cigarettes, uncomplicated; Z91.199 Patient's noncompliance with other medical treatment and regimen due to unspecified reason; Z90.49 Acquired absence of other specified parts of digestive tract; Z79.899 Other long term (current) drug therapy; Z53.29 Procedure and treatment not carried out because of patient's decision for other reasons
CPT/HCPCS: 36415; 36600; 71045; 71250; 80048; 80053; 80305; 81001; 82803; 82948; 83735; 83880; 84100; 84145; 84484; 85025; 85378; 86140; 87635; 87804; 87880; 93005; 94640; 94664; 94760; G0378; J0696; J1650; J1815; J1956; J2405; J2919; J3490; J7030